=== PATIENT | female | born 1970 | race Caucasian/White ===

== ENCOUNTER 2016-07-12 04:14 | Emergency (ER) | payer OTHER ==
[~2016-07-12] VITALS: Ht 154.9 cm; Wt 100.0 kg
[~2016-07-12 04:14] MED LIST: ALBUAER19 INH; LISI2.5T5 PO; LORA-741 PO; MELO15TA3 PO; MOME200A INH; OXYM0.0592 NAE; PRLSR20 PO; TRAM-10 PO
[2016-07-12 04:20] VITALS: TEMP 37; Ht 154.9 cm; Wt 100.0 kg
[2016-07-12] MEDS ORDERED: MELO7.5T5 PO (04:32)
[2016-07-12] MEDS ORDERED: LSN5 PO (04:32)
[2016-07-12] MEDS ORDERED: VNTHFA/IN INH (04:32)
[2016-07-12] MEDS ORDERED: CLR10 PO (04:32)
[2016-07-12] MEDS ORDERED: ADVIN10/60 INH (04:32)
[2016-07-12] MEDS ORDERED: BUSP5TAB59 PO (04:32)
[2016-07-12 05:13] VITALS: O2SAT 98
[2016-07-12 05:16] LABS: BASO % 0.4 %; BASO ABS # 0.03 K/uL (0-0.2); COMPLETE YES; EOS % 0.6 %; HEMATOCRIT 43.1 % (37-47); IG% 0.3 %; MEAN CELL VOLUME 94.1 fL (80-100); MEAN CORPUSCULAR HEMOGLOBIN 31.2 pg (25-34); MEAN CORPUSCULAR HGB CONC 33.2 g/dl (32-36); MEAN PLATELET VOLUME 11.3 fL (7.4-10.4); MONO % 9.1 %; NEUT % 47.6 %; PLATELET COUNT 409 K/uL (130-400); RED BLOOD COUNT 4.58 M/uL (4.2-5.4); WHITE BLOOD COUNT 6.67 K/uL (4.8-10.8)
--- NOTE | 2016-07-12 05:24 | EMERGENCY ROOM VISIT NOTE ---
ED Visit Note First contact with patient: 04:29 I saw this patient in conjunction with Esequiel Montes De Oca PA-C. I agree with his decision-making interim plan.
[2016-07-12 05:55] LABS: BUN/CREATININE RATIO 7.7 (10-20); CALCIUM 8.9 mg/dl (8.5-10.1); CREATININE 0.84 mg/dl (0.60-1.20); POTASSIUM 4.4 mmol/L (3.5-5.1)
[2016-07-12 06:05] LABS: ALB/GLOB RATIO 1.1 (0.9-2); THYROID STIMULATING HORMONE 4.94 uIu/ml (0.300-4.500)
[2016-07-12 06:34] LABS: URINE APPEARANCE CLEAR (CLEAR); URINE BILIRUBIN NEG (NEG); URINE COLOR YELLOW; URINE NITRITE NEG (NEG); URINE PH 6.5 (4.5-7.5); URINE SPECIFIC GRAVITY 1.009 (1.000-1.030); UROBILINOGEN NEG (NEG); ZZUR CULT IF INDIC CLEAN CATCH NO
[2016-07-12 06:39] LABS: MANUAL MICROSCOPIC REQUIRED? NO; REVIEW REQ? NO
[2016-07-12 07:34] LABS: BENZODIAZEPINE, URINE NEG (NEG); COCAINE,URINE NEG (NEG); PHENCYCLIDINE, URINE NEG (NEG)
--- NOTE | 2016-07-12 07:39 | DIAGNOSTIC IMAGING REPORT ---
CT HEAD WITHOUT CONTRAST (CT) CLINICAL HISTORY: Headache. Acute change in mental status. COMPARISON STUDY: 10/05/2015 TECHNIQUE: Axial CT of the brain is performed from the vertex to the skull base. IV contrast was not administered for this examination. CT DOSE: 537.48 mGy.cm FINDINGS: No intra or extra-axial mass lesions are visualized. There is no CT evidence of acute cortical infarction. There is no evidence of midline shift. There is no acute hemorrhage. No calvarial fractures are visualized. There is no evidence of pathologic ventricular dilatation. There is no evidence of acute sinusitis IMPRESSION: No acute intracranial findings Electronically signed by: Donny Woodruff M.D. 07/12/2016 7:37 AM Dictated Date/Time: 07/12/2016 7:36 AM
[2016-07-12 07:55] VITALS: BP 128/89; PULSE 110; O2SAT 98
--- NOTE | 2016-07-13 03:16 | EMERGENCY ROOM VISIT NOTE ---
History First contact with patient: 04:29 Chief Complaint: NECK PAIN Stated Complaint: WEAKNESS/NECK PAIN History of Present Illness The patient is a 46 year old female who presents to the Emergency Room with complaints of vague left arm numbness that occurred for a 5-10 minute interval for resolving. Patient states that she was sleeping on her couch and awoke with her symptoms. She states that she had several alcoholic beverages tonight , and became worried about her symptoms. She did contact EMS and now presents for evaluation. The patient is also complaining of vague left anterior neck pain after a surgery that she had 2 weeks ago. The patient has not had fever or chills. She does not report chest pain, chest tightness, or shortness of breath. She is asymptomatic otherwise and rates her discomfort a 0/10. Review of Systems More than 10 systems were reviewed and otherwise negative with the exception of history of present illness. Past Medical/Surgical History History of asthma Family History No pertinent family history Social History Smoking Status: Former Smoker Drug Use: none Current/Historical Medications Scheduled Buspirone Hcl (Buspirone Hcl), 5 MG PO BID Fluticasone Prop/Salmeterol (Advair Diskus 100/50 60 Dose), 1 PUFF INH BID Lisinopril (Lisinopril), 5 MG PO DAILY Meloxicam (Mobic), 7.5 MG PO DAILY Mometasone Furoate-Formoterol (Dulera 200/5 Mcg), 2 PUFFS INH BID Omeprazole (Prilosec), 20 MG PO BID Scheduled PRN Albuterol Hfa (Ventolin Hfa), 2 PUFFS INH QID PRN for Wheezing Loratadine (Claritin), 10 MG PO DAILY PRN for ALLERGIC REACTION Oxymetazoline Hcl (Nasal [place]), 1 DOSE ARETHA DIRECTED PRN for DRYNESS Tramadol (Ultram), 50 MG PO Q6 PRN for Pain Allergies Coded Allergies: Povidone Iodine (Verified Allergy, Unknown, MADE HER SKIN RAW, 07/12/16) Physical Exam Vital Signs Date Time Temp Pulse Resp B/P Pulse Ox O2 Delivery O2 Flow Rate FiO2 07/12/16 07:55 110 16 128/89 98 07/12/16 07:20 100 16 80/68 98 Room Air 07/12/16 05:45 71 16 120/70 98 Room Air 07/12/16 05:13 98 Room Air 07/12/16 04:20 37.0 123 16 126/95 97 Room Air Pain Rating (0-10): 0 Physical Exam VITALS: Vitals are noted on the nurse's note and reviewed by myself. Vital signs stable. GENERAL: Well-developed, well-nourished, white female who appears obviously intoxicated. She is speaking in full sentences and cooperative. HEAD: Normocephalic atraumatic. EARS: External ear normal. External auditory canals clear, tympanic membranes pearly patterson without erythema or effusion bilaterally. EYES: Pupils equal round and reactive to light and accommodation. Conjunctivae without injection, sclerae without icterus. Extraocular movements intact. NOSE: Patent, turbinates without inflammation or discharge. MOUTH: Mucous membranes moist. Tonsils are not enlarged. Pharynx without erythema, blood, or exudate. Uvula midline. Airway patent. NECK: Supple without nuchal rigidity. No lymphadenopathy. No thyromegaly. Cervical spine is nontender. There is a well-appearing horizontal laceration to the left anterior neck that appears relatively recent. No pulsatile mass noted. No fluctuance or significant tenderness. HEART: Regular rate and rhythm without murmurs gallops or rubs. LUNGS: Clear to auscultation bilaterally without wheezes, rales or rhonchi. No retractions or accessory muscle use. MUSCULOSKELETAL: No muscle atrophy, erythema, or edema noted. Full range of motion without joint tenderness in all extremities. No tenderness to palpation. Normal gait. Strength 5/5 throughout. NEURO: Patient was alert and oriented to person place and time. CN II through XII grossly intact. Medical Decision & Procedures ER Provider Diagnostic Interpretation: CT HEAD WITHOUT CONTRAST (CT) CLINICAL HISTORY: Headache. Acute change in mental status. COMPARISON STUDY: 10/05/2015 TECHNIQUE: Axial CT of the brain is performed from the vertex to the skull base. IV contrast was not administered for this examination. CT DOSE: 537.48 mGy.cm FINDINGS: No intra or extra-axial mass lesions are visualized. There is no CT evidence of acute cortical infarction. There is no evidence of midline shift. There is no acute hemorrhage. No calvarial fractures are visualized. There is no evidence of pathologic ventricular dilatation. There is no evidence of acute sinusitis IMPRESSION: No acute intracranial findings Laboratory Results 07/12/16 05:00 Red Blood Count 4.58, Mean Corpuscular Volume 94.1, Mean Corpuscular Hemoglobin 31.2, Mean Corpuscular Hemoglobin Concent 33.2, Mean Platelet Volume 11.3, Neutrophils (%) (Auto) 47.6, Lymphocytes (%) (Auto) 42.0, Monocytes (%) (Auto) 9.1, Eosinophils (%) (Auto) 0.6, Basophils (%) (Auto) 0.4, Neutrophils # (Auto) 3.17, Lymphocytes # (Auto) 2.80, Monocytes # (Auto) 0.61, Eosinophils # (Auto) 0.04, Basophils # (Auto) 0.03 07/12/16 05:00 Test 07/12/16 05:00 07/12/16 05:05 07/12/16 05:12 07/12/16 05:15 White Blood Count 6.67 K/uL (4.8-10.8) Red Blood Count 4.58 M/uL (4.2-5.4) Hemoglobin 14.3 g/dL (12.0-16.0) Hematocrit 43.1 % (37-47) Mean Corpuscular Volume 94.1 fL (80-100) Mean Corpuscular Hemoglobin 31.2 pg (25-34) Mean Corpuscular Hemoglobin Concent 33.2 g/dl (32-36) Platelet Count 409 K/uL (130-400) Mean Platelet Volume 11.3 fL (7.4-10.4) Neutrophils (%) (Auto) 47.6 % Lymphocytes (%) (Auto) 42.0 % Monocytes (%) (Auto) 9.1 % Eosinophils (%) (Auto) 0.6 % Basophils (%) (Auto) 0.4 % Neutrophils # (Auto) 3.17 K/uL (1.4-6.5) Lymphocytes # (Auto) 2.80 K/uL (1.2-3.4) Monocytes # (Auto) 0.61 K/uL (0.11-0.59) Eosinophils # (Auto) 0.04 K/uL (0-0.5) Basophils # (Auto) 0.03 K/uL (0-0.2) RDW Standard Deviation 44.2 fL (36.4-46.3) RDW Coefficient of Variation 12.8 % (11.5-14.5) Immature Granulocyte % (Auto) 0.3 % Immature Granulocyte # (Auto) 0.02 K/uL (0.00-0.02) Anion Gap 12.0 mmol/L (3-11) Est Creatinine Clear Calc Drug Dose 92.6 ml/min Estimated GFR () 98.0 Estimated GFR (Non- 84.5 BUN/Creatinine Ratio 7.7 (10-20) Calcium Level 8.9 mg/dl (8.5-10.1) Total Bilirubin 0.1 mg/dl (0.2-1) Aspartate Amino Transf (AST/SGOT) 28 U/L (15-37) Alanine Aminotransferase (ALT/SGPT) 34 U/L (12-78) Alkaline Phosphatase 127 U/L (45-117) Total Protein 7.9 gm/dl (6.4-8.2) Albumin 4.1 gm/dl (3.4-5.0) Globulin 3.8 gm/dl (2.5-4.0) Albumin/Globulin Ratio 1.1 (0.9-2) Thyroid Stimulating Hormone (TSH) 4.940 uIu/ml (0.300-4.500) Urine Color YELLOW Urine Appearance CLEAR (CLEAR) Urine pH 6.5 (4.5-7.5) Urine Specific [place] 1.009 (1.000-1.030) Urine Protein NEG (NEG) Urine Glucose (UA) NEG (NEG) Urine Ketones NEG (NEG) Urine Occult Blood NEG (NEG) Urine Nitrite NEG (NEG) Urine Bilirubin NEG (NEG) Urine Urobilinogen NEG (NEG) Urine Leukocyte Esterase NEG (NEG) Urine Opiates Screen NEG (NEG) Urine Methadone, Qualitative NEG (NEG) Urine Barbiturates NEG (NEG) Urine Phencyclidine (PCP) Level NEG (NEG) Ur Amphetamine/Methamphetamine NEG (NEG) MDMA (Ecstasy) Screen NEG (NEG) Urine Benzodiazepines Screen NEG (NEG) Urine Cocaine Metabolite NEG (NEG) Urine Marijuana (THC) NEG (NEG) Bedside Troponin I 0.000 ng/ml (0-0.045) Ethyl Alcohol mg/dL 229.0 mg/dl (0-3) ED Course Physical exam and history were performed. Nursing notes and EMR were reviewed. Patient appears to have vague numbness and tingling in her left hand that lasted for a few minutes bringing her into the emergency department. The patient appears to stay clean toxic on examination. She does have a recent neck surgery, and although she states this was performed in [facility] , [facility] was not able to confirm any recent visit by the patient to their facility. The patient does not have strokelike symptoms and is with full sensation and range of motion of her extremities. IV access was established and labs were obtained. CT scan of the head was performed. The patient's blood work is as above and was reviewed. She does not have a significantly elevated white blood cell count, gross anemia, bandemia, or significant fluctuant imbalance. Her alcohol is over 220. Urine is without obvious signs of infection. Drug of abuse screen is negative. CT scan of the head does not show acute findings. On reevaluation the patient was found to be sleeping quite comfortably in her emergency department bed. She did have a male career placement specialist who arrives in the department, who does feel comfortable taking her home. The case was discussed with my attending physician, Dr. Lopes, who also independently evaluated the patient. Clinically I suspect the patient's symptoms are related to sleeping on her couch or possibly her alcohol intoxication. The patient needs to follow with her primary care physician for further care and management. The patient also needs to follow with her surgeon regarding her left anterior neck discomfort. She certainly does not have signs of aneurysm or dissection, and it seems that her discomfort is ongoing since the time of her procedure. The patient was pleased with this, and she sobered up, did not have any persisting complaints. She rated her discomfort a 0/10 at the time of her departure. The chart was completed utilizing [employer] Speech Voice Recognition Software. Grammatical errors, random word insertions, pronoun errors, and incomplete sentences are an occasional consequence of this system due to software limitations, ambient noise, and hardware issues. Any formal questions or concerns about the content, text, or information contained within the body of this dictation should be directly addressed to the provider for clarification. . Medical Decision Differential diagnosis: Etiologies such as alcohol intoxication, toxicologic, infection, hypoglycemia, electrolyte abnormalities, cardiac sources, intracerebral event, neurologic, as well as others were entertained. Impression Primary Impression: Numbness and tingling in left arm Additional Impression: Alcohol intoxication Departure Information Dispostion Home / Self-Care Condition GOOD Forms HOME CARE DOCUMENTATION FORM, IMPORTANT VISIT INFORMATION Patient Instructions My [facility] Additional Instructions You were seen and evaluated today on an emergency basis only. This is not a substitute for, or an effort to provide, complete comprehensive medical care. It is not possible to recognize and treat all injuries or illnesses in a single emergency department visit. For this reason it is recommended that you followup with your primary care physician and neurosurgeon next week for ongoing care and evaluation. Continue your medications as prescribed. Avoid alcohol as this can exacerbate your symptoms. You are welcome to return to the emergency department anytime with new, worsening, or concerning symptoms. Problem Qualifiers
== END 2016-07-12 07:55 | disposition home or self-care (01) ==
LOC: EDBD 04:14 → C.EDB 04:15
DX: R20.2 Paresthesia of skin (principal); F10.129 Alcohol abuse with intoxication, unspecified; Y90.7 Blood alcohol level of 200-239 mg/100 ml; J45.909 Unspecified asthma, uncomplicated; Z79.899 Other long term (current) drug therapy; Z87.891 Personal history of nicotine dependence; Z91.09 Other allergy status, other than to drugs and biological substances

== ENCOUNTER 2019-04-24 06:00 | Inpatient (IN) ==
--- NOTE | 2019-04-05 10:08 | PAT Medication Instructions ---
Medication Instructions Date of Service April 05, 2019 Home Medications albuterol sulfate 1 inh INHALATION QID PRN buspirone 10 mg PO BID cholecalciferol (vitamin D3) [Vitamin D3] 50 mcg PO QAM dicyclomine 10 mg PO BID PRN escitalopram oxalate [Lexapro] 10 mg PO QAM fluticasone propion-salmeterol [Advair Diskus] 1 puff INHALATION BID lisinopril 5 mg PO QAM meloxicam 7.5 mg PO QAM methocarbamol 500 mg PO 1200 methocarbamol 500 mg PO 1900 omeprazole 20 mg PO BID phentermine 15 mg PO QAM tramadol 50 mg PO Q4H PRN ASK your surgeon for instructions meloxicam DO NOT take the morning of surgery cholecalciferol (vitamin D3) [Vitamin D3] 50 mcg PO QAM dicyclomine 10 mg PO BID PRN lisinopril 5 mg PO QAM methocarbamol 500 mg PO 1200 Take morning of surgery With a small sip of water, OTHERWISE NOTHING TO EAT OR DRINK AFTER MIDNIGHT: albuterol sulfate 1 inh INHALATION QID PRN (use if needed; please bring with you to hospital day of surgery if possible) buspirone 10 mg PO BID escitalopram oxalate [Lexapro] 10 mg PO QAM fluticasone propion-salmeterol [Advair Diskus] 1 puff INHALATION BID omeprazole 20 mg PO BID tramadol 50 mg PO Q4H PRN (okay to take up to 4 hours prior to surgery if needed) Take evening before surgery albuterol sulfate 1 inh INHALATION QID PRN (if needed) buspirone 10 mg PO BID dicyclomine 10 mg PO BID PRN (if needed) fluticasone propion-salmeterol [Advair Diskus] 1 puff INHALATION BID methocarbamol 500 mg PO 1900 omeprazole 20 mg PO BID tramadol 50 mg PO Q4H PRN (if needed) Other Notes STOP taking 5 days before surgery phentermine 15 mg PO QAM If you have any questions please call us at [phone] or [phone] or [phone] or [phone]
--- NOTE | 2019-04-06 12:29 | Anesthesiology Consultation ---
Date of Service April 06, 2019 Assessment & Plan (1) Encounter for pre-operative examination: Chart Review Chart Review: Acceptable Risk for Surgery and Patient seen in Pre Admission Testing History Surgery Operation Date: 04/24/19 07:45 Proposed Procedures p L5-S2 Decompression and Fusion, Spinal Cord Monitoring - Hayes Shea DO Height/Weight Height: 5 ft 1 in Weight: 109.4 kg Allergies Allergy/AdvReac Type Severity Reaction Status Date / Time adhesive tape Allergy Severe Rash Verified 03/27/19 15:14 povidone-iodine Allergy Severe Betadine Verified 03/27/19 15:14 --> MADE HER SKIN RAW Medications Home Medications Medication Instructions Recorded Confirmed Last Taken albuterol sulfate 1 inh INHALATION QID PRN 03/27/19 03/27/19 Unknown buspirone 10 mg PO BID 03/27/19 03/27/19 Unknown cholecalciferol (vitamin D3) 50 mcg PO QAM 03/27/19 03/27/19 Unknown [Vitamin D3] dicyclomine 10 mg PO BID PRN 03/27/19 03/27/19 Unknown escitalopram oxalate [Lexapro] 10 mg PO QAM 03/27/19 03/27/19 Unknown fluticasone propion-salmeterol 1 puff INHALATION BID 03/27/19 03/27/19 Unknown [Advair Diskus] lisinopril 5 mg PO QAM 03/27/19 03/27/19 Unknown meloxicam 7.5 mg PO QAM 03/27/19 03/27/19 Unknown methocarbamol 500 mg PO 1200 03/27/19 03/27/19 Unknown methocarbamol 500 mg PO 1900 03/27/19 03/27/19 Unknown omeprazole 20 mg PO BID 03/27/19 03/27/19 Unknown phentermine 15 mg PO QAM 03/27/19 03/27/19 Unknown tramadol 50 mg PO Q4H PRN 03/27/19 03/27/19 Unknown Past Medical History Medical History Anemia history- no current issues Anxiety Asthma stable- rare albuterol use Cancer cervical cancer - s/p hysterectomy- no chemo or XRT Chronic back pain Chronic obstructive pulmonary disease Stable- rare albuterol use. Mild RAY - no acute issues Degenerative disc disease Depression GERD (gastroesophageal reflux disease) Controlled and stable Hx of branchial cleft cyst left -- removed ~2015 [facility] Hypertension Osteoarthritis Post traumatic stress disorder Exercise / Class Metabolic Activity III < 4 Walking/Shop/Light housework (mild SOB with one set of stairs- no chest pain ) Past Family History Family History Grandfather FHx: throat cancer smoker FHx: brain cancer Other No family history of adverse response to anesthesia Past Surgical History Surgical History History of bilateral tubal ligation History of cardiac cath ~2012 at [facility]. No CAD per pt- no stents needed History of cholecystectomy History of conization of cervix History of dilatation and curettage Hx of neck surgery left branchial cleft cyst (~2015 [facility]) with repair of left artery S/P arthroscopy of shoulder left x2, Left shoulder resurfacin05/03/13: Grade view 1, MAC#3, ETT 7.5 + PNB at [facility] S/P epidural steroid injection S/P vaginal hysterectomy with anterior/posterior repair Past Anesthesia History No Hx of Anesthesia Complications and No Family Hx of Anesthesia Complications History of PONV No Hx of PONV and No Hx of Motion Sickness Social History Smoking Status: Former smoker tobacco type: cigarettes Smoking cigarettes per day: 1ppd x 35 years Do You Dip or Chew Tobacco: No Smoking End Date: 2013 Hx Alcohol Use: No Hx Substance Use: No substance use type: does not use Review of Systems Reflux- well controlled. +Snoring- no apnea. Patient denies chest pain, shortness of breath at rest, cough, wheezing, palpitations. No hx of seizures, stroke, [place], apnea. No hx of blood clots or blood transfusions No recent steroid use Physical Exam Vital Signs VITALS BP 110/80 P 92 TEMP 98.0 SP02 95% RESP 18 Constitutional no acute distress ENMT Mouth: no TMJ clicking Thyromental Distance: > or= 3.5 Finger Breadths (4) Mallampati Class: III Partial dentures - upper and lower (no frontal teeth missing) Neck neck extension not limited Respiratory normal respiratory effort and + respiratory distress Auscultation: lungs clear to auscultation bilaterally and + diminished lung sounds (throughout ); no wheezes Cardiovascular Rate/Rhythm: regular rate and regular rhythm Vessels: no carotid bruit Musculoskeletal Spine: normal cervical ROM and no pain with cervical ROM Psychiatric Orientation: alert Testing Laboratory Results APTT 29.1 Seconds (21.0-31.0) 04/06/19 12:44 Urine Color Yellow 04/06/19 12:44 Urine Appearance Clear (Clear) 04/06/19 12:44 Urine pH 7.0 (4.5-7.5) 04/06/19 12:44 Ur Specific [place] 1.013 (1.000-1.030) 04/06/19 12:44 Urine Protein Negative (Negative) 04/06/19 12:44 Urine Glucose (UA) Negative (Negative) 04/06/19 12:44 Urine Ketones Negative (Negative) 04/06/19 12:44 Urine Nitrite Negative (Negative) 04/06/19 12:44 Ur Leukocyte Esterase Negative (Negative) 04/06/19 12:44 Blood Type O Negative 04/06/19 12:44 Antibody Screen NEGATIVE 04/06/19 12:44 04/05/19= WBC: 7.09 H/H: 14.0/44.8 PLATELETS: 338 SODIUM: 139 POTASSIUM: 4.0 CHLORIDE: 104 CO2: 27.0 BUN: 11.0 CREATININE: 0.92 GLUCOSE: 88 PT: 12.2 INR: 1.06 Electrocardiogram Date: 04/05/19 Findings: + NSR @ (80) Chest X-Ray Date: 04/05/19 Findings: + NAD Mildly to moderately underinflated and essentially clear lungs with the anterior right side of the diaphragm chronically higher than the left. Left shoulder prosthesis with a metallic humeral component. Scoliosis.
[2019-04-06 14:01] LABS: Appearance Urine Clear (Clear); Bilirubin Urine Negative (Negative); Blood Urine Negative (Negative); Color Urine Yellow; Glucose Urine UA Negative (Negative); Ketones Urine Negative (Negative); Leukocyte Esterase Urine Negative (Negative); Nitrite Urine Negative (Negative); Protein Urine Negative (Negative); Specific Gravity Urine 1.013 (1.000-1.030); Urobilinogen Urine Negative (Negative)
[2019-04-06 14:10] LABS: Partial Thromboplastin Ratio 1.1; Partial Thromboplastin Time 29.1 Seconds (21.0-31.0)
[~2019-04-24 06:00] MED LIST changes: +ACETAMINOPHEN 500 MG TAB PO SCH; -ALBUAER19 INH; +CEFAZOLIN 2000MG 2,000 MG/15 ML SYR IV SCH; +CeleBREX 200 MG CAP PO SCH; +GABAPENTIN 900 MG DOSE PO SCH; -LISI2.5T5 PO; -LORA-741 PO; +LR 15ML/HR IV SCH; -MELO15TA3 PO; -MOME200A INH; -OXYM0.0592 NAE; -PRLSR20 PO; -TRAM-10 PO
[2019-04-24] MEDS ORDERED: ONDANSETRON INJ 2 MG/ML 2 ML VIAL ONE (06:54)
[2019-04-24] MEDS ORDERED: MIDAZOLAM HCL 1 MG/ML 2ML VIAL ONE (06:54)
[2019-04-24] MEDS ORDERED: PROPOFOL IV EMULSION 10 MG/ML 20 ML VIAL IV ONE (06:54)
[2019-04-24] MEDS ORDERED: LIDOCAINE HCL 2% 2 ML VIAL/AMP(20MG/ML) INFIL ONE (06:54)
[2019-04-24] MEDS ORDERED: ROCURONIUM BROMIDE 10 MG/ML 5 ML VIAL ONE (06:54)
[2019-04-24] MEDS ORDERED: fentaNYL citrate 100 MCG/2 ML VIAL ONE ×2 (06:54→08:11)
[2019-04-24] MEDS ORDERED: BACITRACIN INJ 50,000 UNIT VIAL ONE (07:08)
[2019-04-24] MEDS ORDERED: BUPIVACAINE/EPINEPHRINE 0.5% MPF 1:200,000 10 ML VIAL ONE (07:08)
--- NOTE | 2019-04-24 07:30 | History & Physical Bridge Note ---
Date of Service April 24, 2019 History & Physical Bridge Note I have examined the patient, reviewed the History & Physical and in the interval since the performance of the History & Physical I have noted the following changes of clinical significance: no changes noted
--- NOTE | 2019-04-24 07:32 | History & Physical Report ---
Date of Service April 24, 2019 Assessment & Plan (1) Neurogenic claudication due to lumbar spinal stenosis: Lumbar decompression fusion L5-S1 Present on Admission?: Yes History of Present Illness Chief Complaint: Back and leg pain Primary Care Provider: Kelechi Brandt This is a 49-year-old female presents with chronic persistent back and leg pain. Failed extensive course of nonoperative care is here for surgical intervention. Allergies Allergy/AdvReac Type Severity Reaction Status Date / Time adhesive tape Allergy Severe Rash Verified 04/24/19 06:20 povidone-iodine Allergy Severe Betadine Verified 04/24/19 06:20 --> MADE HER SKIN RAW Home Medications Home Medications Medication Instructions Recorded Confirmed Type albuterol sulfate 1 inh INHALATION QID PRN 03/27/19 04/24/19 History buspirone 10 mg PO BID 03/27/19 04/24/19 History cholecalciferol (vitamin D3) 50 mcg PO QAM 03/27/19 04/24/19 History [Vitamin D3] dicyclomine 10 mg PO BID PRN 03/27/19 04/24/19 History escitalopram oxalate [Lexapro] 10 mg PO QAM 03/27/19 04/24/19 History fluticasone propion-salmeterol 1 puff INHALATION BID 03/27/19 04/24/19 History [Advair Diskus] lisinopril 5 mg PO QAM 03/27/19 04/24/19 History meloxicam 7.5 mg PO QAM 03/27/19 04/24/19 History methocarbamol 1,000 mg PO 1200 03/27/19 04/24/19 History methocarbamol 500 mg PO 1900 03/27/19 04/24/19 History omeprazole 20 mg PO BID 03/27/19 04/24/19 History phentermine 15 mg PO QAM 03/27/19 04/24/19 History tramadol 50 mg PO Q4H PRN 03/27/19 04/24/19 History Past Med/Surg History Medical History Anemia history- no current issues Anxiety Asthma stable- rare albuterol use Cancer cervical cancer - s/p hysterectomy- no chemo or XRT Chronic back pain Chronic obstructive pulmonary disease Stable- rare albuterol use. Mild RAY - no acute issues Degenerative disc disease Depression GERD (gastroesophageal reflux disease) Controlled and stable Hx of branchial cleft cyst left -- removed ~2015 [facility] Hypertension Osteoarthritis Post traumatic stress disorder Surgical History History of bilateral tubal ligation History of cardiac cath ~2012 at [facility]. No CAD per pt- no stents needed History of cholecystectomy History of conization of cervix History of dilatation and curettage Hx of neck surgery left branchial cleft cyst (~2015 [facility]) with repair of left artery S/P arthroscopy of shoulder left x2, Left shoulder resurfacin05/03/13: Grade view 1, MAC#3, ETT 7.5 + PNB at [facility] S/P epidural steroid injection S/P vaginal hysterectomy with anterior/posterior repair Family History Grandfather FHx: throat cancer smoker FHx: brain cancer Other No family history of adverse response to anesthesia Social History Preferred Language: Kinyarwanda Communication Ability: Effective Can Dragger Required: No Beliefs That Will Affect Care: None Current Living Situation: Significant Other Other Information That Helps Us Care for You: No Feels Safe at Home: Yes Safety Concerns: Feels Safe At This Time Smoking Status: Former smoker Tobacco Type: cigarettes ; Cigarettes Per Day: 1ppd x 35 years ; Do You Dip or Chew Tobacco: No ; Smoking End Date: 2013 ; Second Hand Exposure: Yes ; Tobacco Cessation Education Requested by Patient: No Hx Alcohol Use: No Hx Substance Use: No Physical Exam Physical Exam: Patient is alert and oriented neurologically intact. Results & Data Vital Signs (Past 12 Hours) Vital Signs Temp Pulse Resp BP Pulse Ox 04/24/19 06:29 36.7 C 78 20 115/77 96
[2019-04-24] MEDS ORDERED: ATROPINE SULFATE 0.1 MG/ML 10ML SYR IV PRN (07:33)
[2019-04-24] MEDS ORDERED: METOCLOPRAMIDE HCL INJ 5 MG/ML 2 ML VIAL IV PRN ×2 (07:33→11:31)
[2019-04-24] MEDS ORDERED: ONDANSETRON INJ 2 MG/ML 2 ML VIAL IV PRN ×2 (07:33→11:31)
[2019-04-24] MEDS ORDERED: ePHEDrine sulfate 50 MG/ML AMP IV PRN (07:33)
[2019-04-24] MEDS ORDERED: PROMETHAZINE HCL 12.5 MG in SODIUM CHLORIDE 0.9% 50 ML IV PRN ×2 (07:33→11:31)
[2019-04-24] MEDS ORDERED: DEXAMETHASONE SOD INJ 4 MG/ML VIAL ONE (08:06)
[2019-04-24] MEDS ORDERED: NEOSTIGMINE METHYLSULFATE 1 MG/ML 10ML VIAL ONE (09:24)
[2019-04-24] MEDS ORDERED: GLYCOPYRROLATE 0.2 MG/ML VIAL ONE (09:24)
[2019-04-24] MEDS ORDERED: FLOSEAL HEMOSTATIC MATRIX 5ML TOP ONE (09:34)
--- NOTE | 2019-04-24 09:34 | Operative Report ---
Post Operative Report Pre & Post Diagnosis Operation Date: 04/24/19 07:45 Pre-Op Diagnosis: Spondylolisthesis, Lumbar Region Post-Op Diagnosis: Spondylolisthesis, Lumbar Region I identified the patient and participated in the time-out.: Yes Procedure Operation Date: 04/24/19 07:45 Actual Procedures #1 lumbar decompression with bilateral medial facetectomies and foraminotomies L5-S1. #2 posterior spinal fusion L5-S1. #3 placement posterior instrumentation L5-S1. #4 interbody fusion L5-S1. #5 placement peek cage 11 x 22 mm at L5-S1. #6 placement of locally harvested morselized autograft in the posterior lateral gutters. #7 placement infuse collagen sponge combined master graft in the posterior lateral gutters and ostial amp and interbody space. Surgeon Hayes Shea, DO Student Life Coordinator Karlene Haskins Estimated Blood Loss 150 Findings See Below The patient is 5 foot 1 inches tall weighing over 107 kg with a BMI in excess of 44. The patient's body habitus did add considerable technical difficulty throughout the procedure requiring her deepest retractors and longus instruments in order to perform her surgery. This added at least 50% increase in operative time and will increase difficulties with her postoperative management. Specimens None Indications This is a 49-year-old female who presents above-mentioned diagnosis after failing extensive course of nonoperative care is here for surgical invention. Description of Procedure Patient was met with identified informed consent obtained. Patient was then taken to the operative suite underwent intubation placed in a prone position the Rickey table on top of the Isauro frame. All bony prominences well-padded eyes inspected to ensure no external pressure placed upon. This point the lumbar spine was prepped and draped in normal sterile fashion. Sharp dissection with the assistance pericardial performed down to and exposing the lamina and transverse processes of L5 and the sacral ala. Obvious bilateral pars defect noted. A complete laminectomy was then performed including bilateral medial facetectomies and foraminotomies addressing severe spinal stenosis. Pedicle screws were then placed in L5 and S1 levels bilaterally with assistance of fluoroscopy and appropriate size carla placed. By way of a trans-foraminal approach on the right a complete discectomy was performed endplates curetted to subcortical bleeding bone and a 11 x 22 mm peek cage filled with osteo-bone graft tapped in position. The rods were then locked into final position bilaterally. The transverse processes of L5 and the sacral ala burred to subcortical bleeding bone. Infuse collagen sponge master graft local autograft placed in the posterior lateral gutters. 15 round VLAD drain inserted. The incision was then closed with 1 Vicryl fascia 2-0 Vicryl subcutaneously and 4 Monocryl for final skin closure. Steri-Strip sterile dressings placed. Patient will continue PACU stable addition. Please note Karlene Haskins present at the entire procedure involved the patient positioning complex portions of the surgery and final skin closure. Lastly spinal cord monitoring was utilized that the procedure no changes noted. I attest to the content of the Intraoperative Record and any orders documented therein. Any exceptions are noted below.
--- NOTE | 2019-04-24 09:41 | Fluoroscopy Report ---
LUMBAR SPINE, INTRAOPERATIVE FLUOROSCOPY HISTORY: L5-S1 decompression and fusion. FLUOROSCOPY TIME: 22 seconds. FINDINGS: Intraoperative fluoroscopy was provided for the lumbar spine. 2 fluoroscopic spot images we re obtained. Posterior decompression fusion at L5-S1 with pedicle screws and rods. The hardware appea rs intact. IMPRESSION: Fluoroscopy provided for a L5-S1 posterior decompression and fusion. ACT 112: Negative or not required by law. Electronically signed by: Igor Mccurdy M.D. 04/24/2019 9:40 AM
[2019-04-24] MEDS: fentaNYL citrate 100 MCG/2 ML VIAL IV PRN ×4 (10:01→10:46)
[2019-04-24] MEDS: HYDROmorphone INJ 2 MG/ML SYR/VIAL IV PRN ×4 (10:12→10:28)
[2019-04-24] MEDS ORDERED: LORazepam 0.5 MG/1 ML VIAL IV PRN (11:31)
[2019-04-24] MEDS ORDERED: NALOXONE HCL 0.4 MG/1 ML VIAL/CARP IV PRN (11:31)
[2019-04-24] MEDS ORDERED: LORazepam 0.5 MG TAB PO PRN (11:31)
[2019-04-24] MEDS ORDERED: ACETAMINOPHEN 500 MG TAB PO PRN (11:31)
[2019-04-24] MEDS ORDERED: HYDROmorphone INJ 1 MG/ML SYRINGE IV PRN (11:31)
[2019-04-24] MEDS ORDERED: DO NOT ADMINISTER FLU VACCINE PRN (11:31)
[2019-04-24] MEDS ORDERED: bisacodyL 10 MG SUPP PR PRN (11:31)
[2019-04-24] MEDS ORDERED: SOD PHOSPHATE/SOD BIPHOSPHATE ENEMA 132 ML BTL PR PRN (11:31)
[2019-04-24] MEDS ORDERED: HYDROmorphone INJ 0.5 MG/0.5 ML SYR IV PRN (11:31)
[2019-04-24] MEDS ORDERED: DO NOT ADMINISTER PNEUMOCOCCAL VACCINE PRN (11:31)
[2019-04-24] MEDS ORDERED: ONDANSETRON 4 MG OD TAB PO PRN (11:31)
[2019-04-24] MEDS ORDERED: DICYCLOMINE HCL 10 MG CAP PO PRN (11:31)
[2019-04-24] MEDS ORDERED: MAGNESIUM HYDROXIDE SUSP 30 ML UDC PO PRN (11:31)
[2019-04-24] MEDS ORDERED: ALUMINUM/MAGNESIUM SUSP 30 ML UDC PO PRN (11:31)
[2019-04-24] MEDS ORDERED: FAMOTIDINE 20 MG TAB PO PRN (11:31)
[2019-04-24] MEDS ORDERED: ACETAMINOPHEN 1,000 MG/100 ML VIAL IV PRN (11:31)
[2019-04-24] MEDS ORDERED: ALBUTEROL HFA 8 GM INHALER INH PRN (11:56)
[2019-04-24] MEDS: LACTATED RINGER'S 1,000 ML IV SCH (12:52)
[2019-04-24] MEDS: FLUTICASONE/VILANTEROL 100/25MCG 14 PUFFS/INHALER INH SCH (12:53)
[2019-04-24] MEDS: CEFAZOLIN 2000MG 2,000 MG/15 ML SYR IV SCH ×2 (12:54→21:37)
[2019-04-24] MEDS: KETOROLAC TROMETHAMINE 15 MG/ML VIAL IV SCH ×3 (12:54→23:48)
[2019-04-24] MEDS: OXYCODONE HCL IR 5 MG TAB (IMMEDIATE RELEASE) PO PRN ×3 (13:06→21:37)
--- NOTE | 2019-04-24 13:36 | Anesthesiology Progress Note ---
Date of Service April 24, 2019 Anesthesia Post Procedure Vital Signs Vital Signs: Temp Pulse Pulse Pulse Resp BP Pulse Ox 04/24/19 13:14 88 16 118/82 96 04/24/19 12:14 36.9 C 85 16 121/84 97 04/24/19 11:44 36.5 C 97 H 16 110/78 97 04/24/19 11:15 36.7 C 102 H 20 112/80 96 04/24/19 11:05 37.0 C 88 12 115/76 96 04/24/19 10:50 91 H 16 95/70 L 97 04/24/19 10:40 81 13 107/79 93 04/24/19 10:30 102 H 12 116/78 97 04/24/19 10:20 93 H 18 103/80 94 04/24/19 10:10 89 17 122/80 97 04/24/19 10:00 100 H 15 125/78 99 04/24/19 09:54 36.6 C 95 H 23 138/89 100 04/24/19 06:29 36.7 C 78 20 115/77 96 Pain Intensity Lower Back: Pain Intensity: 5 Transfer of Care Handoff Completed per policy Notes Mental Status: alert / awake / arousable and participated in evaluation Patient Amnestic to Procedure: Yes Nausea / Vomiting: adequately controlled Pain: adequately controlled Airway Patency, RR, SpO2: stable & adequate BP & HR: stable & adequate Hydration State: stable & adequate Anesthetic Complications: no major complications apparent
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
[2019-04-24] MEDS: TRAMADOL HCL 50 MG TABLET PO PRN ×2 (16:30→23:46)
[2019-04-24] MEDS: METHOCARBAMOL 500 MG TABLET PO SCH (20:39)
[2019-04-24] MEDS: PANTOprazole 40 MG TAB PO SCH (20:39)
[2019-04-24] MEDS: DOCUSATE SODIUM/SENNA 50/8.6MG TAB PO SCH (20:39)
[2019-04-25] MEDS: LACTATED RINGER'S 1,000 ML IV SCH (01:24)
[2019-04-25] MEDS: OXYCODONE HCL IR 5 MG TAB (IMMEDIATE RELEASE) PO PRN ×5 (01:45→22:19)
[2019-04-25] MEDS: TRAMADOL HCL 50 MG TABLET PO PRN ×3 (04:34→16:21)
[2019-04-25 05:08] LABS: Basophils # (auto) 0.02 K/uL (0-0.2); Basophils % (auto) 0.2 %; Eosinophils # (auto) 0.02 K/uL (0-0.5); Eosinophils % (auto) 0.2 %; Hematocrit (blood only) 36.2 % (37-47); Hemoglobin 11.7 g/dL (12.0-16.0); Immature Granulocytes # (auto) 0.02 K/uL (0.00-0.02); Immature Granulocytes % (auto) 0.2 %; Lymphocytes # (auto) 1.83 K/uL (1.2-3.4); Lymphocytes % (auto) 14.5 %; Mean Corpuscular Hemoglobin 30.5 pg (25-34); Mean Corpuscular Hgb Conc 32.3 g/dL (32-36); Mean Corpuscular Volume 94.3 fL (80-100); Mean Platelet Volume 11.7 fL (7.4-10.4); Monocytes # (auto) 0.86 K/uL (0.11-0.59); Monocytes % (auto) 6.8 %; Neutrophils # (auto) 9.87 K/uL (1.4-6.5); Neutrophils % (auto) 78.1 %; Platelet Count 313 K/uL (130-400); RDW Coefficient of Variation 13.4 % (11.5-14.5); RDW Standard Deviation 46.2 fL (36.4-46.3); Red Blood Count 3.84 M/uL (4.2-5.4); White Blood Count 12.62 K/uL (4.8-10.8)
[2019-04-25] MEDS: POLYETHYLENE (MIRALAX) 17 GM PACK PO SCH ×3 (05:28→17:31)
[2019-04-25] MEDS: KETOROLAC TROMETHAMINE 15 MG/ML VIAL IV SCH (05:28)
[2019-04-25 05:35] LABS: BUN Creatinine Ratio 12.2 (10-20); Calcium 8.1 mg/dl (8.5-10.1); Creatinine Clr Calc Pharmacy 85.7 ml/min; Est GFR (African American) 85.9; Est GFR (Non-African American) 74.2; Potassium 3.7 mmol/L (3.5-5.1)
--- NOTE | 2019-04-25 08:14 | Anesthesiology Progress Note ---
Date of Service April 25, 2019 Anesthesia Post Procedure Vital Signs Vital Signs: Temp Pulse Pulse Pulse Resp BP Pulse Ox 04/25/19 07:14 36.7 C 77 16 124/88 96 04/25/19 03:02 36.5 C 78 15 135/89 99 04/24/19 22:51 36.9 C 83 16 123/82 96 04/24/19 19:16 36.8 C 74 18 123/80 96 04/24/19 15:17 36.4 C L 83 17 119/83 95 04/24/19 14:11 36.5 C 81 16 119/80 99 04/24/19 13:14 88 16 118/82 96 04/24/19 12:14 36.9 C 85 16 121/84 97 04/24/19 11:44 36.5 C 97 H 16 110/78 97 04/24/19 11:15 36.7 C 102 H 20 112/80 96 04/24/19 11:05 37.0 C 88 12 115/76 96 04/24/19 10:50 91 H 16 95/70 L 97 04/24/19 10:40 81 13 107/79 93 04/24/19 10:30 102 H 12 116/78 97 04/24/19 10:20 93 H 18 103/80 94 04/24/19 10:10 89 17 122/80 97 04/24/19 10:00 100 H 15 125/78 99 04/24/19 09:54 36.6 C 95 H 23 138/89 100 Pain Intensity Lower Back: Pain Intensity: 4 Notes Mental Status: alert / awake / arousable and participated in evaluation Nausea / Vomiting: adequately controlled Pain: adequately controlled Airway Patency, RR, SpO2: stable & adequate BP & HR: stable & adequate Hydration State: stable & adequate
[2019-04-25] MEDS: FLUTICASONE/VILANTEROL 100/25MCG 14 PUFFS/INHALER INH SCH (08:29)
[2019-04-25] MEDS: ESCITALOPRAM OXALATE 10 MG TAB PO SCH (08:30)
[2019-04-25] MEDS: lisinopriL 5 MG TAB PO SCH (08:30)
[2019-04-25] MEDS: PANTOprazole 40 MG TAB PO SCH ×2 (08:30→20:13)
--- NOTE | 2019-04-25 10:44 | Orthopedic Progress Note ---
Date of Service April 25, 2019 Assessment & Plan (1) Neurogenic claudication due to lumbar spinal stenosis: At this time patient will initiate physical therapy advance her bowel regiment hopefully discharge home in the next few days. Present on Admission?: Yes Admission and Anticipated Discharge Date Admission Date: April 24, 2019 Subjective Back pain controlled leg symptoms markedly improved. Physical Exam Physical Exam: Patient is in the chair at the bedside has good strength testing. Appears comfortable. Results & Data ([facility]) Vital Signs (Past 12 Hours) Vital Signs Temp Pulse Resp BP Pulse Ox 04/25/19 07:14 36.7 C 77 16 124/88 96 04/25/19 03:02 36.5 C 78 15 135/89 99 04/24/19 22:51 36.9 C 83 16 123/82 96
--- NOTE | 2019-04-25 12:23 | Hospitalist Progress Note ---
Date of Service April 25, 2019 Assessment & Plan (1) Neurogenic claudication due to lumbar spinal stenosis: - S/P Decompression/Fusion - Pain currently well controlled; Bowel regimen; Surgical management per primary team - PT/OT (2) Anemia: - Hgb 11.7 - no need for transfusion at this time - H/O anemia - no labs for comparison - probably some losses from surgery - Can routinely monitor (3) Asthma: - STABLE; No acute exacerbation - Has required increased inhaler use with cold weather when outside but hasn't required additional treatment/steroids/antibiotics - Continue Albuterol PRN; Breo Ellipta as interchange (4) Hypertension: - STABLE - Continue Lisinopril 5 mg daily (5) Depression: - Depression/Anxiety - Buspirone 10 mg BID; Lexapro 10 mg daily (6) GERD (gastroesophageal reflux disease): - Continue PPI Disposition: Patient is stable in regards to her chronic conditions. Recommend to continue home medications as prescribed on D/C. Hospitalist service will sign off however do not hesitate to contact us with questions or any change in medical condition. Admission and Anticipated Discharge Date Admission Date: April 24, 2019 Anticipated date of discharge: 04/26/19 Subjective She looks fantastic post-operatively. She is ambulating in the room independently on my visit. She reports pain is controlled. Tolerating diet without issue. Breathing is stable. She is working with therapy. No other complaints at this time Review of Systems Respiratory: no cough and no dyspnea Cardiovascular: no chest pain Gastrointestinal: no abdominal pain, no nausea, no vomiting, no constipation and no diarrhea/loose stools Genitourinary: no dysuria Musculoskeletal: no back pain Integumentary: no rash Neurologic: no gait abnormality, no tingling and no numbness Physical Exam Constitutional: WD/WN, vitals as above Eyes: + anicteric sclerae ENMT: Ears: no hearing impairment Nose: nasal mucous membranes not dry Neck: trachea midline Respiratory: normal respiratory effort, lungs clear to auscultation Cardiovascular: RRR, no murmur, no edema Gastrointestinal (Abdomen): Inspection/Auscultation: normal bowel sounds Percussion/Palpation: abdomen soft; abdomen nontender Musculoskeletal: no cyanosis or clubbing, extremities motor strength 5/5 Head/Neck/Chest: normocephalic and head atraumatic + VLAD drain present Skin: no rashes, warm and dry Neurologic: moves all extremities Psychiatric: A+Ox3, euthymic affect Results & Data ([place]) Vital Signs (Past 12 Hours) Vital Signs Temp Pulse Resp BP Pulse Ox 04/25/19 07:14 36.7 C 77 16 124/88 96 04/25/19 03:02 36.5 C 78 15 135/89 99 PG Care Time/CCT Total # of Minutes Spent Total Time Spent with Patient: Total time spent is greater than 50% in coordination of care (as documented) at patient's floor/unit and/or counseling patient: Coding Level of Care Code 71692 Inpt Consult Level 2 Diagnoses Neurogenic claudication due to lumbar spinal stenosis M48.062 Anemia D64.9 Asthma J45.909 Hypertension I10 Depression F32.9 GERD (gastroesophageal reflux disease) K21.9
[2019-04-25] MEDS: DOCUSATE SODIUM/SENNA 50/8.6MG TAB PO SCH (20:13)
[2019-04-25] MEDS: METHOCARBAMOL 500 MG TABLET PO SCH (20:13)
[2019-04-26] MEDS: POLYETHYLENE (MIRALAX) 17 GM PACK PO SCH ×3 (00:13→11:40)
[2019-04-26] MEDS: TRAMADOL HCL 50 MG TABLET PO PRN ×4 (00:18→13:31)
[2019-04-26] MEDS: OXYCODONE HCL IR 5 MG TAB (IMMEDIATE RELEASE) PO PRN ×3 (02:47→11:39)
[2019-04-26] MEDS: FLUTICASONE/VILANTEROL 100/25MCG 14 PUFFS/INHALER INH SCH (07:45)
[2019-04-26] MEDS: lisinopriL 5 MG TAB PO SCH (07:45)
[2019-04-26] MEDS: PANTOprazole 40 MG TAB PO SCH (07:45)
[2019-04-26] MEDS: ESCITALOPRAM OXALATE 10 MG TAB PO SCH (07:46)
--- NOTE | 2019-04-26 11:13 | Discharge Summary ---
Date of Service April 26, 2019 Admission HPI Per Admitting Provider This is a 49-year-old female presents with chronic persistent back and leg pain. Failed extensive course of nonoperative care is here for surgical intervention. Principal Diagnosis Lumbar spinal stenosis with neurogenic claudication Discharge Data Allergies Allergy/AdvReac Type Severity Reaction Status Date / Time adhesive tape Allergy Severe Rash Verified 04/24/19 06:20 povidone-iodine Allergy Severe Betadine Verified 04/24/19 06:20 --> MADE HER SKIN RAW Consultations 04/24/19 11:31 Consult Case Management - Discharge Planning Routine Consult Hospitalist Routine Procedures Performed Operation Date: 04/24/19 07:45 Actual Procedures p L5-S1 Decompression and Fusion, Spinal Cord Monitoring(Not Applicable) - Hayes Shea DO Ordered Studies 04/24/19 07:00 FL fluoroscopy <1hr Routine FL lumbar spine 2-3V Routine Hospital Course (1) Neurogenic claudication due to lumbar spinal stenosis: Patient with lumbar decompression fusion tolerated well second orthopedic for postoperative postop day 1 she was up and ambulating progressed to postop day #2 VLAD drain decreased appropriately. Excellent strength testing. Subsequently discharged home. Discharge orders instructions from the chart for further review. Total Time Total Time Spent Total Time Spent (In Minutes): 20 minutes Discharge Plan Discharge Items Patient Disposition: Home - Self-Care Reason For Visit: Spondylolisthesis, Lumbar Region Discharge Diagnosis: Lumbar spinal stenosis with spondylolisthesis Activity: As commented below Non-emergency contact: Primary Care Provider Call non-emergency contact if: you have any medication questions Follow-up/Referrals: Kelechi Brandt [Primary Care Provider] - Diet: Regular Addtl Attending Provider Instructions: ACTIVITY RECOMMENDATIONS: SELF CARE INSTRUCTIONS AFTER THORACIC/LUMBAR FUSIONS 1. You may walk to your tolerance. It is good exercise for your legs and back. Expect some back and intermittent leg aches and pains. 2. You may perform "counter-top" level activities (make a sandwich, ajimee with a project, etc.). 3. No bending or lifting of more than 10 pounds or back twisting of any nature (roll like a log when turning in bed). 4. You may ride in a car for 20-30 minutes at a time. No driving until after your first visit with your doctor. 5. Frequent changes of position and restricting sitting to 30 minutes at a time will help limit the amount of back spasms and stiffness you may experience. 6. You may discontinue the use of ambulatory aids (cane, crutches, etc.) once your strength and confidence allow. 7. You may guest relations coordinator the shower and let water strike your incision when you arrive home at least once daily. Do not take a tub bath, sit in a hot tub or go into a swimming pool until after your first recheck in the office. SPECIAL CARE INSTRUCTIONS: VERY IMPORTANT TO READ AND REVIEW A. Your surgical incision has been closed with a cosmetic suture under the skin that will dissolve in about 6 weeks. In 14 days, you can use a pair of clean scissors and cut the suture that is left outside of the skin at the ends of your incision. 1. The small skin tapes can be removed 7 days after surgery if they have not fallen off by that point. 2. You may keep the wound open to air as much as possible to promote healing after post-op day number 5 unless told otherwise by your doctor. 3. If you think the wound looks like it is becoming infected (redness or worsening drainage) and/or you are experiencing fever, chill or worsening back pain and muscle spasms, contact the office so that we may evaluate you as soon as possible. B. Complications are uncommon, but please contact us if you have any signs or symptoms of: 1. wound infection (fever higher than 102.5 degrees F, redness, separation of wound, drainage, or increasing pain from the incision) 2. blood clots in legs (pain, swelling, redness and warmth in legs) 3. urinary tract infection (fever higher than 102.5 degrees F, burning upon urination or increased frequency of urination) 4. nerve problems (inability to walk on your toes or heels, numbness, loss of bowel or bladder control) 5. any other symptoms that concern you C. Please call the office at if you have any concerns or questions about your operation or recovery. D. No smoking! Smoking drastically decreases the chance of a solid fusion. E. Do not take any anti-inflammatory medications (Indocin, Advil, Motrin, Aspirin, Naprosyn, etc.) as these may inhibit the chance of a solid fusion. Tylenol is okay to take for pain. MANAGING PAIN AFTER SPINAL SURGERY 1. Narcotic medication is intended for short-term use and will be provided for surgical pain. Surgical pain usually lasts for a period of 4-6 weeks. Narcotic medication includes Percocet, Vicodin, Darvocet, Tylenol #3 or Lortab. 2. Longer-term pain is more appropriately treated with non-narcotic medication such as Tylenol ES. 3. Muscle spasm is not appropriately treated with narcotics. Muscle relaxers such as Soma, Flexeril or Skelaxin can be used along with Tylenol ES. 4. Remember that we all live with some "aches and pains". This is not unusual or uncommon after an injury or as we get older. a. Back pain is expected and may include muscle spasms for 4 to 6 weeks after surgery. The pain should gradually improve. If the pain worsens for no apparent reason, please contact the office. b. Intermittent leg pain may also be experienced and should not be concerned about unless it worsens for no apparent reason. If so, please contact the office. 5. We will provide appropriate medication within the normal guidelines of their prescribed use. We will also be very cautious and aware of potential abuse and extended duration of patients' medication needs. a. Pain medications are for your comfort and to assist with sleep and rest so that the tissue can heal. They are not provided in order to return to normal activity and should not be used through the day. To do so or worsening pain at night can result from ongoing tissue damage and development of tolerance to the prescribed medicine. 6. Please allow 2-3 days to process refills. Prescriptions will not be mailed but must be picked up at the office. FOLLOW UP VISIT: Keep your scheduled follow-up appointment. Any questions, please call the office at . Pending Studies at Discharge: No Stand-Alone Forms: [employer], Smoking Cessation Medications and DC Order Prescriptions: New tramadol 50 mg tablet 50 mg PO Q6H PRN (Reason: pain, moderate) Qty: 30 RF: 0 oxycodone 5 mg tablet 5 mg PO Q6H PRN (Reason: pain, severe) Qty: 30 RF: 0 Continued methocarbamol 500 mg Tablet 1,000 mg PO 1200 RF: 0 methocarbamol 500 mg Tablet 500 mg PO 1900 RF: 0 phentermine 15 mg Capsule 15 mg PO QAM RF: 0 tramadol 50 mg Tablet 50 mg PO Q4H PRN (Reason: Pain) RF: 0 buspirone 10 mg Tablet 10 mg PO BID RF: 0 lisinopril 5 mg Tablet 5 mg PO QAM RF: 0 fluticasone propion-salmeterol [Advair Diskus] 100-50 mcg/dose Blister With Device 1 puff INHALATION BID RF: 0 dicyclomine 10 mg Capsule 10 mg PO BID PRN (Reason: upset stomach) RF: 0 escitalopram oxalate [Lexapro] 10 mg Tablet 10 mg PO QAM RF: 0 omeprazole 20 mg Tablet,Delayed Release (Dr/Ec) 20 mg PO BID RF: 0 cholecalciferol (vitamin D3) [Vitamin D3] 50 mcg (2,000 unit) Capsule 50 mcg PO QAM RF: 0 albuterol sulfate 90 mcg/actuation Aerosol Powdr Breath Activated 1 inh INHALATION QID PRN (Reason: sob) RF: 0 Discontinued meloxicam 7.5 mg Tablet 7.5 mg PO QAM RF: 0 Discharge Orders: Discharge Order (Routine); Ordered 04/26/19 Ordered By: Hayes Shea Admission Data Admit Date/Time: 04/24/19 10:09 Attending Provider: Hayes Shea Admit Provider: Hayes Shea Primary Care Provider: Kelechi Brandt Other Providers: Maik Maza
== END 2019-04-26 13:44 | disposition home or self-care (01) | DRG 455 ==
LOC: ASU 06:00 → 3E 10:09

== ENCOUNTER 2022-06-22 11:12 | Observation (INO) ==
--- NOTE | 2022-06-09 09:19 | PAT Medication Instructions ---
Medication Instructions Date of Service June 09, 2022 Home Medications albuterol sulfate 90 mcg/actuation aerosol inhaler 2 puff inhalation Q4 PRN Shortness Of Breath Or Wheezing duloxetine 30 mg capsule,delayed release 90 mg PO QAM gabapentin 300 mg capsule 300 mg PO TID hydrocodone 5 mg-acetaminophen 325 mg tablet 1 tab PO Q6 PRN Pain levothyroxine 25 mcg tablet 25 mcg PO QAM lisinopril 20 mg tablet 20 mg PO QAM melatonin 5 mg tablet 5 mg PO HS PRN Sleep omeprazole 20 mg capsule,delayed release 20 mg PO BID sumatriptan succinate 50 mg tablet 50 mg PO UD PRN Migraine Headache Beet Root 1 cap PO DAILY Probioslim X-Strength 1 cap PO BID ashwagandha extract 120 mg capsule 120 mg PO HS aspirin 81 mg tablet,delayed release 81 mg PO QAM bupropion HCl 150 mg 24 hr tablet, extended release 150 mg PO QAM buspirone 30 mg tablet 30 mg PO BID cholecalciferol (vitamin D3) 50 mcg (2,000 unit) capsule (Vitamin D3) 50 mcg PO DAILY cyanocobalamin (vitamin B-12) 2,500 mcg chewable tablet 2,500 mcg PO DAILY cyclobenzaprine 10 mg tablet 10 mg PO TID PRN Pain evening primrose oil 500 mg capsule 500 mg PO DAILY flaxseed oil 1,000 mg capsule 1,000 mg PO TID loratadine 10 mg tablet 10 mg PO QAM meloxicam 15 mg tablet 15 mg PO QAM montelukast 10 mg tablet (Singulair) 10 mg PO HS ondansetron HCl 8 mg tablet 8 mg PO Q12H PRN Nausea prednisone 10 mg tablet 10 mg PO DAILY turmeric root extract 150 mg-stephanie root extract 25 mg chewable tablet 1 tab PO DAILY umeclidinium 62.5 mcg/actuation blister powder for inhalation (Incruse Ellipta) 1 inh inhalation DAILY ASK your surgeon for instructions meloxicam 15 mg tablet 15 mg PO QAM ASK your prescriber and surgeon aspirin 81 mg tablet,delayed release 81 mg PO QAM STOP taking 2 weeks before surgery (or as soon as possible if surgery is within 2 weeks) Beet Root 1 cap PO DAILY Probioslim X-Strength 1 cap PO BID ashwagandha extract 120 mg capsule 120 mg PO HS evening primrose oil 500 mg capsule 500 mg PO DAILY flaxseed oil 1,000 mg capsule 1,000 mg PO TID turmeric root extract 150 mg-stephanie root extract 25 mg chewable tablet 1 tab PO DAILY DO NOT take the morning of surgery lisinopril 20 mg tablet 20 mg PO QAM cholecalciferol (vitamin D3) 50 mcg (2,000 unit) capsule (Vitamin D3) 50 mcg PO DAILY cyanocobalamin (vitamin B-12) 2,500 mcg chewable tablet 2,500 mcg PO DAILY cyclobenzaprine 10 mg tablet 10 mg PO TID PRN Pain loratadine 10 mg tablet 10 mg PO QAM Take morning of surgery With a small sip of water, OTHERWISE NOTHING TO EAT OR DRINK AFTER MIDNIGHT: albuterol sulfate 90 mcg/actuation aerosol inhaler 2 puff inhalation Q4 PRN Shortness Of Breath Or Wheezing (use if needed; please bring rescue inhaler with you to hospital day of surgery if possible) duloxetine 30 mg capsule,delayed release 90 mg PO QAM gabapentin 300 mg capsule 300 mg PO TID hydrocodone 5 mg-acetaminophen 325 mg tablet 1 tab PO Q6 PRN Pain (if needed) levothyroxine 25 mcg tablet 25 mcg PO QAM omeprazole 20 mg capsule,delayed release 20 mg PO BID sumatriptan succinate 50 mg tablet 50 mg PO UD PRN Migraine Headache (if needed) bupropion HCl 150 mg 24 hr tablet, extended release 150 mg PO QAM buspirone 30 mg tablet 30 mg PO BID ondansetron HCl 8 mg tablet 8 mg PO Q12H PRN Nausea (if needed) prednisone 10 mg tablet 10 mg PO DAILY umeclidinium 62.5 mcg/actuation blister powder for inhalation (Incruse Ellipta) 1 inh inhalation DAILY Take evening before surgery albuterol sulfate 90 mcg/actuation aerosol inhaler 2 puff inhalation Q4 PRN Shortness Of Breath Or Wheezing (if needed) gabapentin 300 mg capsule 300 mg PO TID hydrocodone 5 mg-acetaminophen 325 mg tablet 1 tab PO Q6 PRN Pain (if needed) melatonin 5 mg tablet 5 mg PO HS PRN Sleep (if needed) omeprazole 20 mg capsule,delayed release 20 mg PO BID sumatriptan succinate 50 mg tablet 50 mg PO UD PRN Migraine Headache (if needed) buspirone 30 mg tablet 30 mg PO BID cyclobenzaprine 10 mg tablet 10 mg PO TID PRN Pain (if needed) montelukast 10 mg tablet (Singulair) 10 mg PO HS ondansetron HCl 8 mg tablet 8 mg PO Q12H PRN Nausea (if needed) Other Notes If you have any questions please call us at [phone] or [phone] or [phone] or [phone]
--- NOTE | 2022-06-11 13:04 | Anesthesiology Consultation ---
Date of Service June 11, 2022 Assessment & Plan (1) Encounter for pre-operative examination: - Case discussed with Dr. Harper who advised nothing additional is needed from his standpoint and pt can proceed with surgery at current status. - PCP clearance 06/08/22 [facility]: "...chronic lower back pain s/p lumbar fusion on oxycodone, DJD, chronic knees pain, brachial cleft cyst s/p surgery, hx of cholecystectomy, HTN, hypothyroidism, overactive bladder, PTSD, anxiety, seasonal allergy, hx of ETOH abuse, former smoker, COPD, R ABDIFATAH seen for procedure/surgeon/date hemiarthroplasty to reverse total shoulder replacement...went to [facility] last night (for L knee pain)-was given a shot last night for pain...VSS and overall normal PE...chronic conditions are stable...revised cardiac index of zero...cleared for surgery..." Outpatient joint assessment: Patient is currently scheduled for inpatient pathway. If re-evaluated pending system levels during current pandemic/surgeon requests outpatient pathway, patient is not acceptable candidate for outpatient joint program from anesthesia standpoint per Dr. Harper. - Pt states has used chlorhexidine wipes in the past without any reaction. Chart Review Chart Review: Acceptable Risk for Surgery and Patient seen in Pre Admission Testing Teaching & Discussion Pre-Anesthesia Teaching/Discussion Notes: Instructed NPO after midnight before surgery, except medications with 15 cc of water. Medication instructions provided according to the PAT guidelines. History Surgery Operation Date: 06/22/22 09:35 Proposed Procedures p Left Shoulder Hemiarthroplasty Converted to Reserved Total Shoulder Arthroplasty - Kris Garcia MD Height/Weight Height: 5 ft 1 in Weight: 115.3 kg Allergies Allergy/AdvReac Type Severity Reaction Status Date / Time povidone-iodine Allergy Severe Betadine Verified 06/08/22 15:14 --> MADE HER SKIN RAW adhesive tape Allergy Intermediate Rash Verified 06/08/22 15:14 ibuprofen Allergy Intermediate nausea and Verified 06/09/22 10:16 vomiting Medications Home Medications Medication Instructions Recorded Confirmed Last Taken albuterol sulfate 90 mcg/actuation 2 puff inhalation Q4 PRN Shortness 02/17/21 06/08/22 Unknown aerosol inhaler Of Breath Or Wheezing duloxetine 30 mg capsule,delayed 90 mg PO QAM 02/17/21 06/08/22 Unknown release gabapentin 300 mg capsule 300 mg PO TID 02/17/21 06/08/22 Unknown hydrocodone 5 mg-acetaminophen 325 1 tab PO Q6 PRN Pain 02/17/21 06/08/22 Unknown mg tablet levothyroxine 25 mcg tablet 25 mcg PO QAM 02/17/21 06/08/22 Unknown lisinopril 20 mg tablet 20 mg PO QAM 02/17/21 06/08/22 Unknown melatonin 5 mg tablet 5 mg PO HS PRN Sleep 02/17/21 06/08/22 Unknown omeprazole 20 mg capsule,delayed 20 mg PO BID 02/17/21 06/08/22 Unknown release sumatriptan succinate 50 mg tablet 50 mg PO UD PRN Migraine Headache 02/17/21 06/08/22 Unknown Beet Root 1 cap PO DAILY 06/08/22 06/08/22 Unknown Probioslim X-Strength 1 cap PO BID 06/08/22 06/08/22 Unknown ashwagandha extract 120 mg capsule 120 mg PO HS 06/08/22 06/08/22 Unknown aspirin 81 mg tablet,delayed 81 mg PO QAM 06/08/22 06/08/22 Unknown release bupropion HCl 150 mg 24 hr tablet, 150 mg PO QAM 06/08/22 06/08/22 Unknown extended release buspirone 30 mg tablet 30 mg PO BID 06/08/22 06/08/22 Unknown cholecalciferol (vitamin D3) 50 50 mcg PO DAILY 06/08/22 06/08/22 Unknown mcg (2,000 unit) capsule (Vitamin D3) cyanocobalamin (vitamin B-12) 2,500 mcg PO DAILY 06/08/22 06/08/22 Unknown 2,500 mcg chewable tablet cyclobenzaprine 10 mg tablet 10 mg PO TID PRN Pain 06/08/22 06/08/22 Unknown evening primrose oil 500 mg capsule 500 mg PO DAILY 06/08/22 06/08/22 Unknown flaxseed oil 1,000 mg capsule 1,000 mg PO TID 06/08/22 06/08/22 Unknown loratadine 10 mg tablet 10 mg PO QAM 06/08/22 06/08/22 Unknown meloxicam 15 mg tablet 15 mg PO QAM 06/08/22 06/08/22 Unknown montelukast 10 mg tablet 10 mg PO HS 06/08/22 06/08/22 Unknown (Singulair) ondansetron HCl 8 mg tablet 8 mg PO Q12H PRN Nausea 06/08/22 06/08/22 Unknown prednisone 10 mg tablet 10 mg PO DAILY 06/08/22 06/08/22 Unknown turmeric root extract 150 1 tab PO DAILY 06/08/22 06/08/22 Unknown mg-stephanie root extract 25 mg chewable tablet umeclidinium 62.5 mcg/actuation 1 inh inhalation DAILY 06/08/22 06/08/22 Unknown blister powder for inhalation (Incruse Ellipta) Past Medical History Medical History Anxiety and depression Asthma used rescue inhaler>last evening Chronic back pain Chronic obstructive pulmonary disease Degenerative disc disease GERD (gastroesophageal reflux disease) Controlled and stable History of alcohol abuse History of anemia History of irregular heartbeat NO CARDS Hx of branchial cleft cyst left -- removed ~2015 [facility] Hx of cervical cancer cervical cancer - s/p hysterectomy- no chemo or XRT Hypertension controlled, stable per pt Hypothyroidism Migraine Overactive bladder Post traumatic stress disorder Sleep-disordered breathing snoring and witnessed apneas, denies sleep study Patient denies h/o stroke, seizures, heart attack, heart failure, DM, blood clots or blood transfusions. Exercise / Class Metabolic Activity III < 4 Walking/Shop/Light housework (SOB with usual activities ongoing x 6-7 yrs per pt since weight gain; denies change or worsening; denies chest discomfort) Past Family History Family History Grandfather FHx: throat cancer smoker FHx: brain cancer Mother Atrial fibrillation Other No family history of adverse response to anesthesia Past Surgical History Surgical History H/O shoulder surgery LEFT SHOULDER RESURFACING History of appendectomy History of bilateral tubal ligation History of bladder surgery History of cardiac cath ~2012 at [facility]. No CAD per pt- no stents needed History of cholecystectomy History of conization of cervix History of dilatation and curettage History of lumbar fusion L5-S2 decompression-fusion Grade 1 view, MAC 3, ETT 7. History of tooth extraction History of total hip arthroplasty RT Hx of neck surgery left branchial cleft cyst (~2016 [facility]) with repair of left artery S/P arthroscopy of shoulder left S/P epidural steroid injection S/P vaginal hysterectomy with anterior/posterior repair Past Anesthesia History No Hx of Anesthesia Complications and No Family Hx of Anesthesia Complications History of PONV No Hx of PONV and No Hx of Motion Sickness Social History Smoking Status: Never smoker tobacco type: cigarettes Do You Dip or Chew Tobacco: No Smoking End Date: 12 + YEARS AGO Hx Alcohol Use: No substance use type: does not use Review of Systems Patient denies chest pain, fever, chills, cough, wheezing, or palpitations. Physical Exam Vital Signs Vitals BP 130/87 P 83 TEMP 98.3 SP02 98% on RA RESP 18 Physical Full cervical extension range of motion without pain TMD 3.5 finger breadths Mallampati Score 2 Dentition: edentulous Lungs: normal respiratory effort. Good air movement, clear throughout to auscultation, no adventitious breath sounds Cardiac: regular rate and rhythm, no murmurs noted Carotid arteries: negative bruit bilat Lab Results Anesthesia Preop Results Results Anesthesia Widget: WBC 9.02 K/ul (4.8-10.8) 06/11/22 Hgb 13.0 g/dl (12.0-16.0) 06/11/22 Hct 39.7 % (37.0-47.0) 06/11/22 Plt 296 K/uL (130-400) 06/11/22 Na 140 mmol/L (136-145) 06/11/22 K 4.4 mmol/L (3.5-5.1) 06/11/22 Cl 103 mmol/L (98-107) 06/11/22 CO2 31 mmol/L (21-32) 06/11/22 BUN 19 mg/dl (6-23) 06/11/22 Creat 0.93 mg/dl (0.6-1.2) 06/11/22 Glucose Level 81 mg/dl (70-99(Fasting)) 06/11/22 PT 10.3 Seconds (9.0-12.0) 06/11/22 PTT 27.3 Seconds (21.0-31.0) 06/11/22 INR 1.0 (0.9-1.1) 06/11/22 Urine Color Dark Yellow 06/11/22 Urine Appearance Clear (Clear) 06/11/22 Urine pH 5.5 (4.5-7.5) 06/11/22 Urine Specific [place] 1.026 (1.000-1.030) 06/11/22 Urine Protein Negative (Negative) 06/11/22 Urine Glucose (UA) Negative (Negative) 06/11/22 Urine Ketones Negative (Negative) 06/11/22 Urine Blood Negative (Negative) 06/11/22 Urine Nitrite Negative (Negative) 06/11/22 Urine Bilirubin Negative (Negative) 06/11/22 Urine Urobilinogen Negative (Negative) 06/11/22 Urine Leukocyte Esterase Negative (Negative) 06/11/22 Blood Type O Negative 06/11/22 Antibody Screen NEGATIVE 06/11/22 Testing Electrocardiogram Date: 12/10/21 Sinus rhythm, rate 99 bpm Chest X-Ray Date: 09/04/21 No acute cardiopulmonary process Other Testing Bone scan 04/23/22 1. Three-phase negative bone scan without evidence of infection. 2. Moderately increased delayed activity within the shoulders suggestive of osteoarthritis/chronic remodeling. COVID-19 Risk Screen Screening Information COVID-19 Screen Date: 06/11/22 Exposure 21 Days Family/Household +COVID Last 21 Days: No Exposure 10 Days Any COVID Exposure Last 10 Days: No Symptoms Last 10 Days Experienced COVID Sx Last 10 Days: No + COVID 0-90 Days COVID + in Last 0-90 Days: No
--- NOTE | 2022-06-21 18:50 | History & Physical Report ---
Date of Service June 21, 2022 Assessment & Plan (1) Primary osteoarthritis, left shoulder: Plan: Treatment options discussed with patient. She has pain interfering with her daily activities and has failed conservative measures. She would like to proceed with surgical intervention. Risks, benefits and alternatives to surgery including but not limited to infection, DVT, pain, stiffness, need for revision surgery, damage to blood vessels, damage to nerves, PE, , were discussed with the patient and they wish to proceed. Plan on left shoulder conversion of hemiarthroplasty to reverse total shoulder arthroplasty scheduled for [facility] on 06/22/[address] Garcia. All questions answered. Patient will follow up post op. History of Present Illness Chief Complaint: Left shoulder pain Primary Care Provider: Chelsie Nicholas MD 52yo female with PMHx significant for HTN, COPD, chronic back pain, hypothyroid, migraine, anxiety/depression, PTSD who presents with ongoing left shoulder pain. Patient has history of left shoulder hemiarthroplasty with progressive osteoarthritis left shoulder. Pain is interfering with her daily activities. She has failed conservative measures and would like to proceed with surgical intervention. Patient denies headaches, sweats, fevers, chills, double vision, blurred vision, cough, sore throat, dysphagia, chest pain, sob, wheezing, n/v/d/c, numbness, tingling, fatigue, urinary symptoms, mood disorders. ROS positive for left shoulder pain and stiffness. Allergies Allergy/AdvReac Type Severity Reaction Status Date / Time povidone-iodine Allergy Severe Betadine Verified 06/08/22 15:14 --> MADE HER SKIN RAW adhesive tape Allergy Intermediate Rash Verified 06/08/22 15:14 ibuprofen Allergy Intermediate nausea and Verified 06/09/22 10:16 vomiting Home Medications Medication Instructions Recorded Confirmed Type albuterol sulfate 90 mcg/actuation 2 puff inhalation Q4 PRN Shortness 02/17/21 06/08/22 History aerosol inhaler Of Breath Or Wheezing duloxetine 30 mg capsule,delayed 90 mg PO QAM 02/17/21 06/08/22 History release gabapentin 300 mg capsule 300 mg PO TID 02/17/21 06/08/22 History hydrocodone 5 mg-acetaminophen 325 1 tab PO Q6 PRN Pain 02/17/21 06/08/22 History mg tablet levothyroxine 25 mcg tablet 25 mcg PO QAM 02/17/21 06/08/22 History lisinopril 20 mg tablet 20 mg PO QAM 02/17/21 06/08/22 History melatonin 5 mg tablet 5 mg PO HS PRN Sleep 02/17/21 06/08/22 History omeprazole 20 mg capsule,delayed 20 mg PO BID 02/17/21 06/08/22 History release sumatriptan succinate 50 mg tablet 50 mg PO UD PRN Migraine Headache 02/17/21 06/08/22 History Beet Root 1 cap PO DAILY 06/08/22 06/08/22 History Probioslim X-Strength 1 cap PO BID 06/08/22 06/08/22 History ashwagandha extract 120 mg capsule 120 mg PO HS 06/08/22 06/08/22 History aspirin 81 mg tablet,delayed 81 mg PO QAM 06/08/22 06/08/22 History release bupropion HCl 150 mg 24 hr tablet, 150 mg PO QAM 06/08/22 06/08/22 History extended release buspirone 30 mg tablet 30 mg PO BID 06/08/22 06/08/22 History cholecalciferol (vitamin D3) 50 50 mcg PO DAILY 06/08/22 06/08/22 History mcg (2,000 unit) capsule (Vitamin D3) cyanocobalamin (vitamin B-12) 2,500 mcg PO DAILY 06/08/22 06/08/22 History 2,500 mcg chewable tablet cyclobenzaprine 10 mg tablet 10 mg PO TID PRN Pain 06/08/22 06/08/22 History evening primrose oil 500 mg capsule 500 mg PO DAILY 06/08/22 06/08/22 History flaxseed oil 1,000 mg capsule 1,000 mg PO TID 06/08/22 06/08/22 History loratadine 10 mg tablet 10 mg PO QAM 06/08/22 06/08/22 History meloxicam 15 mg tablet 15 mg PO QAM 06/08/22 06/08/22 History montelukast 10 mg tablet 10 mg PO HS 06/08/22 06/08/22 History (Singulair) ondansetron HCl 8 mg tablet 8 mg PO Q12H PRN Nausea 06/08/22 06/08/22 History prednisone 10 mg tablet 10 mg PO DAILY 06/08/22 06/08/22 History turmeric root extract 150 1 tab PO DAILY 06/08/22 06/08/22 History mg-stpehanie root extract 25 mg chewable tablet umeclidinium 62.5 mcg/actuation 1 inh inhalation DAILY 06/08/22 06/08/22 History blister powder for inhalation (Incruse Ellipta) Past Med/Surg History Medical History Anxiety and depression Asthma used rescue inhaler>last evening Chronic back pain Chronic obstructive pulmonary disease Degenerative disc disease GERD (gastroesophageal reflux disease) Controlled and stable History of alcohol abuse History of anemia History of irregular heartbeat NO CARDS Hx of branchial cleft cyst left -- removed ~2015 [facility] Hx of cervical cancer cervical cancer - s/p hysterectomy- no chemo or XRT Hypertension controlled, stable per pt Hypothyroidism Migraine Overactive bladder Post traumatic stress disorder Sleep-disordered breathing snoring and witnessed apneas, denies sleep study Surgical History H/O shoulder surgery LEFT SHOULDER RESURFACING History of appendectomy History of bilateral tubal ligation History of bladder surgery History of cardiac cath ~2012 at [facility]. No CAD per pt- no stents needed History of cholecystectomy History of conization of cervix History of dilatation and curettage History of lumbar fusion L5-S2 decompression-fusion Grade 1 view, MAC 3, ETT 7. History of tooth extraction History of total hip arthroplasty RT Hx of neck surgery left branchial cleft cyst (~2015 [facility]) with repair of left artery S/P arthroscopy of shoulder left S/P epidural steroid injection S/P vaginal hysterectomy with anterior/posterior repair Family History Grandfather FHx: throat cancer smoker FHx: brain cancer Mother Atrial fibrillation Other No family history of adverse response to anesthesia Social History Smoking Status: Never smoker Smoking End Date: 12 + YEARS AGO; Second Hand Exposure: Yes; Do You Dip or Chew Tobacco: No; Hx Alcohol Use: No Preferred Language: Czech Communication Ability: Effective Bulk Receiver Required: No Beliefs That Will Affect Care: None Current Living Situation: Significant Other Feels Safe at Home: Yes Safety Concerns: Feels Safe At This Time Assistive Devices: Cane and Wheelchair Review of Systems All systems reviewed & are unremarkable except as noted in HPI & below Physical Exam Constitutional: well developed and well nourished; no acute distress Eyes: PERRL, conjunctivae normal, anicteric sclerae ENMT: external ear and nose normal, oropharynx normal Neck: trachea midline, no thyromegaly Respiratory: normal respiratory effort, lungs clear to auscultation Cardiovascular: RRR, no murmur, no edema Musculoskeletal: Left shoulder: well healed incision. Tenderness anterior glenoid and humerus. Weakness and pain with strength testing. 4/5 abduction, 5/5 ER, 3+/5 IR. Mild crepitation. Painful ROM. ER to 45 degrees, FF to 90 degrees, abduction to 90 degrees actively. Skin: no rashes, warm and dry Neurologic: patellar DTR's 2+ bilat, sensation intact Psychiatric: A+Ox3, euthymic affect Results & Data Laboratory Results Mildly elevated CRP at 1.67, normal sed rate at 18, normal WBC count of 8. Diagnostic Findings Left shoulder radiographs demonstrated progressive osteoarthritis with decreased GH joint space, anterior subluxation of humerus suggesting subscapularis tearing vs weakness. Hemiarthroplasty without evidence for loosening.
[~2022-06-22 11:12] MED LIST changes: +BUPIVACAINE 0.5 % 5 MG/1 ML PF 10ML VIAL ONE; -CEFAZOLIN 2000MG 2,000 MG/15 ML SYR IV SCH; +FAMOTIDINE 20 MG TAB PO SCH; +METOCLOPRAMIDE HCL 10 MG TABLET PO SCH; +MIDAZOLAM HCL 1 MG/ML 2ML VIAL ONE; +PROPOFOL IV EMULSION 10 MG/ML 20 ML VIAL IV ONE; +TRANEXAMIC ACID 1,000 MG **IV Intra-op IV SCH; +TRANEXAMIC ACID 1,000 MG **IV Pre-op IV SCH; +VANCOMYCIN HCL 1,750 MG in SODIUM CHLORIDE 0.9% 500 ML IV SCH; +ceFAZolin 2000MG 2,000 MG/15 ML SYR IV SCH; +dexAMETHasone 4 MG TAB PO SCH; +fentaNYL citrate PF 100 MCG/2 ML VIAL ONE
[2022-06-22] MEDS ORDERED: ONDANSETRON INJ 2 MG/ML 2 ML VIAL IV PRN ×2 (12:23→18:20)
[2022-06-22] MEDS ORDERED: PROMETHAZINE HCL 6.25 MG in SODIUM CHLORIDE 0.9% 50 ML IV PRN (12:23)
[2022-06-22] MEDS ORDERED: ATROPINE SULFATE 0.1 MG/ML 10ML SYR IV PRN (12:23)
--- NOTE | 2022-06-22 13:34 | History & Physical Bridge Note ---
Date of Service June 22, 2022 History & Physical Bridge Note I have examined the patient, reviewed the History & Physical and in the interval since the performance of the History & Physical I have noted the following changes of clinical significance: no changes noted
[2022-06-22] MEDS ORDERED: LIDOCAINE 2% MPF LOCAL 5 ML VIAL ONE (14:34)
[2022-06-22] MEDS ORDERED: ROCURONIUM BROMIDE 10 MG/ML 5 ML VIAL IV ONE (14:34)
[2022-06-22] MEDS ORDERED: DEXAMETHASONE SOD INJ 4 MG/ML VIAL ONE (14:35)
[2022-06-22] MEDS ORDERED: ONDANSETRON INJ 2 MG/ML 2 ML VIAL ONE (14:35)
[2022-06-22] MEDS ORDERED: SUGAMMADEX SODIUM 200 MG/2 ML VIAL IV ONE (16:35)
--- NOTE | 2022-06-22 17:23 | Operative Report ---
Post Operative Report Pre & Post Diagnosis Operation Date: 06/22/22 14:25 Pre-Op Diagnosis: Left Shoulder painful hemiarthroplasty with glenoid bone erosion and subscapularis weakness, morbid obesity BMI 48 Post-Op Diagnosis: Left Shoulder painful hemiarthroplasty well fixed component with posterior inferior glenoid erosion retained suture anchor and suture material from prior repair, subscapularis weakness and tendinopathy without a tear, morbid obesity BMI 48 I identified the patient and participated in the time-out.: Yes Procedure Operation Date: 06/22/22 14:25 Actual Procedures p Left Shoulder Hemiarthroplasty explantation and revision to reversed total Shoulder Arthroplasty both humeral and glenoid components, excisional debridement suture anchor, suture material, increased level difficulty due to morbid obesity BMI 48 (Left) - Kris Garcia MD Surgeon Kris Garcia MD Secondary Market Manager Saad DIXON Estimated Blood Loss 150 Findings Consistent with Post-Op Diagnosis Specimens Resurfacing hemiarthroplasty implant with undersurface bone Drains 2 Hemovac Anesthesia Type General Regional Complications none Disposition Disposition: Recovery Room Indications 52-year-old female with chronic pain in her left shoulder over time. 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 She has well fixed resurfacing hemiarthroplasty with some osteophytes that have developed around the edge of the implant and some glenoid erosion radiographically with some anterior subluxation on axial view and some weakness of the subscapularis. Description of Procedure The patient was taken to the operating room and anesthetized under regional block and general anesthetic. The patient was positioned on the operating table in a 30 beachchair position with a towel roll under the medial border of the left scapula. The arm was draped free to be able to manipulate the shoulder as needed. The left upper extremity was prepped and draped in usual sterile fashion. Exam demonstrated forward flexion 180 degrees external rotation 100 degrees internal rotation 70 degrees. Patient was morbidly obese and obese arm as well.. An anterior deltopectoral approach was performed. A longitudinal incision was made in the deltopectoral interval. The skin was incised sharply. Subcutaneous flaps were elevated off the fascia. The cephalic vein was dissected out and retracted lateral with the deltoid. There was dense scar tissue between the pectoralis muscle and deltoid this was carefully dissected down to an equally scarred clavipectoral fascia. This was divided overlying the conjoined tendons we could identify the landmarks of the conjoined tendon and the coracoid process was identified. Dissection was kept lateral to the conjoined tendon. Superior to the CA ligament was released. The scarred subscapularis tissue was identified and the thickened scarred bursa was dissected off of the underlying subscapularis tissue. The upper 50% of the subscapularis had good thick tissue but the lower aspect was a thin tissue and capsular scar tissue and subscapularis tissue all in one plane. Adhesions were released underlying the posterior deltoid and bleeders were cauterized as needed. The biceps was previously tenodesed to the pectoralis tendon.. The upper centimeter of the pectoralis was rereleased for inferior exposure. The subscapularis tendon was taken down off the lesser tuberosity using a subperiosteal peel dissection. A #1 Vicryl traction suture was placed into the free end of the subscapularis tendon and capsule. Retractors were readjusted and the inferior lateral osteophytes were all resected using an artist chisel. A Chacon elevator was used to assist in releasing the capsule of the neck of the humerus. Attention was first taken to removing the humeral resurfacing implant. An oscillating saw was used to cut directly at the base of the implant and then it was gently removed with a small artist chisel osteotome without difficulty. The underlying bone demonstrated demonstrated good bone ingrowth in about 50% of the under lying bone but the other 50% had some soft bone that could have been more AVN or stress shielding potentially. The implant was sent to pathology for evaluation. Attention was then taken to the humeral preparation. The cutting guide was placed into the humeral head. It was positioned at 20 of retroversion. Oscillating saw was used to revise the prior cut and resect some of the remaining humeral head keeping the cut above the level of the posterior rotator cuff insertion site. I did release supraspinatus tissue maintaining infraspinatus and teres minor attachment. There were suture anchors from prior subscapularis repair that had to be removed in order to instrument the canal. These were peek Helicoil type anchors. Suture tapes and sutures were also removed. The humerus was then prepared for the stem. I used the ascend flex stem from [employer]. The sizing broaches were used followed by trial broaches up to a size 2B long which had the appropriate fit and fill. The appropriate sized cut protector was placed. The humerus was then retracted posterior to the glenoid. Glenoid still had superior and anterior articular's cartilage and had posterior inferior bone that was eburnated with minor bone loss only. This time the labrum was resected the capsule release was performed anterior inferiorly posterior inferiorly with electrocautery on bone and a Chacon elevator. An inferior glenoid osteophyte was resected. The glenoid was sized for a 25 baseplate. The 10 degree inferior tilt guide for the baseplate was positioned and the central guidewire was placed. The cannulated reamer for the 25 baseplate was used. The reamer for the central boss was used. Bone was very hard and sclerotic. We used the hard bone reamer. The depth gauge was used to measure for the central screw. The Tornier perform baseplate was screwed into position with the 30 mm central screw. Excellent hard bone fixation was obtained.. The base plate was transfixed with superior and inferior locking screws and anterior and posterior compression screws with stable fixation. The fan reamer was used for the 25 millimeter glenoid sphere. After irrigation the 25 mm symmetrical glenoid sphere was impacted onto the baseplate and the screw was tightened. Attention was taken back to the humerus. The cut protector was removed and the +0 low offset humeral tray trial was assembled to the trial stem rotated appropriately to get bony coverage and then screwed in position. A trial reduction was performed. Patient did have muscle relaxation. A +6, 36 mm reversed trial insert demonstrated good stability and no shuck. The trials were removed. 3 drill holes are made into the harder bone in the bicipital groove area and 3 #5 FiberWire sutures were placed transosseously. The canal was irrigated with pulse saline solution. The final component was assembled. The final component was ascend flex 2 B long stem assembled to +0 low offset tray and a +6, 36 mm reversed polyethylene insert. This was then impacted into the humerus with a tight press-fit. It was reduced to the glenoid sphere. Stability was verified. Subscapularis was repaired with the #5 FiberWire sutures using Roderick-Tomas suture technique. Lateral row soft tissue repair was performed with #2 FiberWire [id number] sutures. The pectoralis was repaired with #2 FiberWire [id number] sutures . The arm was taken through a range of motion which demonstrated 170 degrees of flexion 90 degrees of abduction 70 degrees external rotation without any tension on repair. The implant was stable through the range of motion tested. The wound was copiously irrigated. 2 Hemovac drains were placed. The deltopectoral interval was closed with [id number] #1 Vicryl sutures. The subcutaneous tissues were closed with 2-0 Vicryl sutures. The skin was closed with ngoc. Sterile dressings Xeroform 4 x 4's OpSite were applied and a shoulder immobilizer. There was increased level difficulty adding 45 minutes to the procedure due to her morbid obesity. Saad DIXON my physician pediatric medical assistant assisted in the procedure to the entire procedure including patient positioning arm positioning prepping and draping soft tissue retraction instrument management suture management and performed the subcutaneous and skin closure and will participate in the postoper ative care of the patient. I attest to the content of the Intraoperative Record and any orders documented therein. Any exceptions are noted below.
--- NOTE | 2022-06-22 17:37 | Anesthesiology Progress Note ---
Date of Service June 22, 2022 Anesthesia Post Procedure Vital Signs Vital Signs: Temp Pulse Pulse Resp BP Pulse Ox O2 Del Method 06/22/22 17:30 94 H 20 137/99 100 Oxymask 06/22/22 17:20 36.1 C L 96 H 18 160/99 H 99 Oxymask 06/22/22 12:04 36.3 C L 92 H 18 161/109 H 99 Room Air O2 Flow Rate 06/22/22 17:30 6 06/22/22 17:20 6 06/22/22 12:04 Pain Intensity Left Shoulder: Pain Intensity: 8 Transfer of Care Handoff Completed per policy Notes Mental Status: alert / awake / arousable Patient Amnestic to Procedure: Yes Nausea / Vomiting: adequately controlled Pain: adequately controlled Airway Patency, RR, SpO2: stable & adequate BP & HR: stable & adequate Hydration State: stable & adequate Anesthetic Complications: no major complications apparent
[2022-06-22] MEDS: fentaNYL citrate PF 100 MCG/2 ML VIAL IV PRN ×2 (17:46→17:52)
--- NOTE | 2022-06-22 18:03 | XRay Report ---
XR shoulder LT min 2V routine HISTORY: 52 years-old Female Post shoulder surgery left shoulder arthroplasty COMPARISON: Shoulder radiographs 05/03/2013 TECHNIQUE: 2 views of the left shoulder FINDINGS: Reverse shoulder arthroplasty demonstrates satisfactory alignment with overlying skin ngoc, expect ed postoperative soft tissue swelling and deep tissue air with surgical drainage catheter. No acute f racture, alignment or unexpected opaque foreign body. IMPRESSION: Reverse total joint arthroplasty with expected postoperative changes. ACT 112: Negative or not required by law. The above report was generated using voice recognition software. It may contain grammatical, syntax o r spelling errors. Electronically signed by: Edilson Snow M.D. 06/22/2022 6:01 PM
[2022-06-22] MEDS ORDERED: SUMAtriptan succinate 50 MG TAB PO PRN (18:20)
[2022-06-22] MEDS ORDERED: SODIUM CHLORIDE 0.9% 1000ML 1,000 ML IV SCH (18:20)
[2022-06-22] MEDS ORDERED: bisacodyL 10 MG SUPP PR PRN (18:20)
[2022-06-22] MEDS ORDERED: METOCLOPRAMIDE HCL INJ 5 MG/ML 2 ML VIAL IV PRN (18:20)
[2022-06-22] MEDS ORDERED: ALBUTEROL HFA 8 GM INHALER INH PRN (18:20)
[2022-06-22] MEDS ORDERED: MAGNESIUM HYDROXIDE SUSP 30 ML UDC PO PRN (18:20)
[2022-06-22] MEDS ORDERED: CYCLOBENZAPRINE HCL 10 MG TAB PO PRN (18:20)
[2022-06-22] MEDS ORDERED: NALOXONE HCL 0.4 MG/1 ML VIAL/CARP IV PRN (18:20)
[2022-06-22] MEDS: GABAPENTIN 300 MG CAP PO SCH (20:00)
[2022-06-22] MEDS: DOCUSATE SODIUM 100 MG CAP PO SCH (20:00)
[2022-06-22] MEDS: ACETAMINOPHEN 500 MG TAB PO SCH (20:00)
[2022-06-22] MEDS: PANTOprazole 40 MG TAB PO SCH (20:00)
[2022-06-22] MEDS: busPIRone 15 MG TAB PO SCH (20:00)
[2022-06-22] MEDS: oxyCODONE HCL IR 5 MG TAB (IMMEDIATE RELEASE) PO PRN (20:01)
[2022-06-22] MEDS ORDERED: SENNA 8.6 MG TAB PO SCH (21:00)
[2022-06-22] MEDS ORDERED: MONTELUKAST SODIUM 10 MG TABLET PO SCH (21:00)
[2022-06-22] MEDS: ceFAZolin 2000MG 2,000 MG/15 ML SYR IV SCH (22:53)
[2022-06-22] MEDS: HYDROmorphone INJ 0.5 MG/0.5 ML SYR IV PRN (22:54)
[2022-06-23] MEDS: oxyCODONE HCL IR 5 MG TAB (IMMEDIATE RELEASE) PO PRN ×3 (01:08→11:50)
[2022-06-23] MEDS: HYDROmorphone INJ 0.5 MG/0.5 ML SYR IV PRN (02:46)
[2022-06-23] MEDS: ACETAMINOPHEN 500 MG TAB PO SCH ×2 (06:04→15:11)
[2022-06-23] MEDS ORDERED: LEVOTHYROXINE SODIUM 25 MCG TABLET PO SCH (06:30)
[2022-06-23 07:32] LABS: Basophils # (auto) 0.01 K/uL (0-0.2); Basophils % (auto) 0.1 %; Hematocrit (blood only) 34.1 % (37.0-47.0); Hemoglobin 11.4 g/dl (12.0-16.0); Immature Granulocytes # (auto) 0.07 K/uL (0.01-0.20); Immature Granulocytes % (auto) 0.5 %; Lymphocytes % (auto) 6.9 %; Mean Corpuscular Hgb Conc 33.4 g/dL (32.0-36.0); Mean Corpuscular Volume 92.7 fL (80.0-100.0); Mean Platelet Volume 11.3 fL (9.4-12.4); Monocytes # (auto) 0.48 K/uL (0.11-0.59); Monocytes % (auto) 3.7 %; Neutrophils # (auto) 11.54 K/uL (1.40-6.50); Neutrophils % (auto) 88.8 %; Platelet Count 328 K/uL (130-400); RDW Coefficient of Variation 13.2 % (11.5-14.5); RDW Standard Deviation 44.7 fL (36.4-46.3); Red Blood Count 3.68 M/uL (4.20-5.40)
[2022-06-23 07:54] LABS: BUN Creatinine Ratio 14.9 (10-20); Calcium 8.6 mg/dl (8.6-10.3); Creatinine Clr Calc Pharmacy 91.4 ml/min; Est GFR (Non-African American) 77.7 ml/min; Potassium 3.9 mmol/L (3.5-5.1)
--- NOTE | 2022-06-23 07:54 | Orthopedic Progress Note ---
Date of Service June 23, 2022 Assessment & Plan (1) Primary osteoarthritis, left shoulder: Plan: Postop day 1 status post left reverse total shoulder arthroplasty/conversion from a hemiarthroplasty PT/OT protocols. Nonweightbearing left upper extremity. DVT prophylaxis aspirin p.o. daily, SCDs, GEE hart. Pain management as written. BMP pending DC planning-plan for discharge to home today. Admission and Anticipated Discharge Date Admission Date: June 22, 2022 Subjective Postop day 1 Patient sitting up in bed awake and alert. States that her block is wearing off this morning. She is having a little bit more pain but is tolerating well. Pain medications are helping. She has no other complaints at this time. Physical Exam Physical Exam: Dressings are clean, dry, and intact. Sling is in place. She has good range of motion of her fingers and wrist at this time. She has some slight numbness of her left thumb that is slowly resolving. Capillary refill is less than 2 seconds. Hemovac drainage was approximately 100 cc from the previous shift. Results & Data Vital Signs (Past 12 Hours) Vital Signs Temp Pulse Resp BP Pulse Ox O2 Del Method 06/23/22 07:00 36.8 C 93 H 18 110/75 96 Room Air 06/23/22 02:31 36.6 C 98 H 18 121/83 94 Room Air 06/22/22 21:31 36.8 C 101 H 18 103/72 94 Room Air 06/22/22 20:24 36.7 C 97 H 18 140/97 98 Room Air Laboratory Results Laboratory Results WBC 13.00 K/ul (4.8-10.8) H 06/23/22 07:08 RBC 3.68 M/uL (4.20-5.40) L 06/23/22 07:08 Hgb 11.4 g/dl (12.0-16.0) L 06/23/22 07:08 Hct 34.1 % (37.0-47.0) L 06/23/22 07:08 MCV 92.7 fL (80.0-100.0) 06/23/22 07:08 MCH 31.0 pg (25.0-34.0) 06/23/22 07:08 MCHC 33.4 g/dL (32.0-36.0) 06/23/22 07:08 RDW Std Deviation 44.7 fL (36.4-46.3) 06/23/22 07:08 RDW Coeff of Morgan 13.2 % (11.5-14.5) 06/23/22 07:08 Plt Count 328 K/uL (130-400) 06/23/22 07:08 MPV 11.3 fL (9.4-12.4) 06/23/22 07:08 Immature Gran % (Auto) 0.5 % 06/23/22 07:08 Neut % (Auto) 88.8 % 06/23/22 07:08 Lymph % (Auto) 6.9 % 06/23/22 07:08 [place] % (Auto) 3.7 % 06/23/22 07:08 Eos % (Auto) 0.0 % 06/23/22 07:08 Baso % (Auto) 0.1 % 06/23/22 07:08 Neut # (Auto) 11.54 K/uL (1.40-6.50) H 06/23/22 07:08 Lymph # (Auto) 0.90 K/uL (1.2-3.4) L 06/23/22 07:08 [place] # (Auto) 0.48 K/uL (0.11-0.59) 06/23/22 07:08 Eos # (Auto) 0.00 K/uL (0-0.50) 06/23/22 07:08 Baso # (Auto) 0.01 K/uL (0-0.2) 06/23/22 07:08 Immature Gran # (Auto) 0.07 K/uL (0.01-0.20) 06/23/22 07:08 SARS-CoV-2, RNA, NAAT NEGATIVE (NEGATIVE) 06/22/22 Unknown Blood Type O Negative 06/22/22 11:40 Antibody Screen NEGATIVE 06/22/22 11:40 Impressions Shoulder X-Ray 06/22/22 17:21 XR shoulder LT min 2V routine HISTORY: 52 years-old Female Post shoulder surgery left shoulder arthroplasty COMPARISON: Shoulder radiographs 05/03/2013 TECHNIQUE: 2 views of the left shoulder FINDINGS: Reverse shoulder arthroplasty demonstrates satisfactory alignment with overlying skin ngoc, expected postoperative soft tissue swelling and deep tissue air with surgical drainage catheter. No acute fracture, alignment or unexpected opaque foreign body. IMPRESSION: Reverse total joint arthroplasty with expected postoperative changes. ACT 112: Negative or not required by law. The above report was generated using voice recognition software. It may contain grammatical, syntax or spelling errors. Electronically signed by: Edilson Snow M.D. 06/22/2022 6:01 PM
[2022-06-23] MEDS: PANTOprazole 40 MG TAB PO SCH (07:55)
[2022-06-23] MEDS: DOCUSATE SODIUM 100 MG CAP PO SCH (07:56)
[2022-06-23] MEDS: GABAPENTIN 300 MG CAP PO SCH ×2 (07:56→15:11)
[2022-06-23] MEDS: busPIRone 15 MG TAB PO SCH (07:56)
[2022-06-23] MEDS: ceFAZolin 2000MG 2,000 MG/15 ML SYR IV SCH (08:26)
--- NOTE | 2022-06-23 08:28 | Hospitalist Consultation ---
Date of Consultation June 23, 2022 Assessment & Plan (1) Primary osteoarthritis, left shoulder: - Pain management, bowel regimen and DVT ppx per the primary team - PT/OT consults, pt is planning on outpatient therapy - Hgb of 11 today compared to previously being 13 - noted pt with hx of anemia - encourage multivitamin plus iron post surgically - Can continue ostobiflex and other vitamins and supplements - Pt would like to transition off meloxicam ( held prior to surgery) and back to celebrex because she thinks this worked better for her. - will defer to primary team (2) Hypertension: - May continue lisinopril 20 mg every morning (3) Chronic obstructive pulmonary disease: -Uses Incruse Ellipta, may continue, albuterol rescue inhaler - Reports hx of smoking cigarettes, no longer uses. Pt has a vape which she uses marijuana oil in it occasionally - discussed that oil can cause intermediate manager issues and worsen breathing - she is agreeable to switching to marijuana gummies instead if needed for pain. Consider pain management referral as an outpatient. (4) GERD (gastroesophageal reflux disease): -Continue omeprazole (5) Depression: -Continue bupropion 150 mg qam, duloxetine 90 mg qam (6) Hypothyroidism: - Cont levothyroxine 25 mcg, Recommend follow up with PCP for trending TSH. DVT ppx: - teds, scds CODE: Full code Dispo: From home, likely to remain in the hospital x 1 day with possible discharge today A total of 45 minutes were spent with greater than 50% of that time face to face with the patient, personally reviewing all current laboratories, imaging studies, past medication reconciliation, outpatient chart review, and discussion with specialists to collaborate care for the patient with attending. Please see attending documentation for corrections and/or additions. Supervising Physician Co-Signing Physician Notes Pt seen and examined by me, care coordinated w/ Zeb Stephens PA-C, pls refer to her note above for further detail. Pt is a 52 yo F with HTN, COPD, anemia, hypothyroidism, history of alcohol abuse, PTSD, anxiety and depression who is s/p left total shoulder arthroplasty by Dr. Mcclain on 06/22/2022 (yesterday). Medicine has been consulted for medical management. Currently laying in bed, in no acute distress. She is awake alert oriented answ ering questions appropriately. Breathing comfortably on room air, saturating 96%. Lungs are clear to auscultation, heart sounds regular. Abdomen soft nontender nondistended, positive bowel sounds, obese. Left upper extremity in a sling. No lower extremity edema noted. Patient is moving extremities. Skin is warm and dry. Continue to closely monitor, plan as above. MD Jarod History of Present Illness Reason for Consultation: Medical management Requesting Physician: Dr. Garcia Attending Physician: Kris Garcia MD History of Present Illness This is a 52 yo F with PMHx of cervical cancer status post hysterectomy, HTN, COPD, anemia, hypothyroidism, history of alcohol abuse, PTSD, anxiety and depression who presented to the hospital for elective left total shoulder arthroplasty by Dr. Mcclain on 06/22/2022. Medicine has been consulted for medical management. Pt reports having her shoulder operated on went well, pain is very well controlled. She has been up most of the night and states didn't sleep but this happens occasionally to her. Pt is tolerating soft liquid diet as her teeth have all been pulled due to hx of gum disease. Dr. Alegria with oromaxillofacial surgery is working with her to get the molds created for teeth vs implants. This has been ongoing for at least the past 1 year since her teeth were pulled. She is working to loose weight, and has lost 10 lbs within the past few months - although it is difficult due to her multiple joint issues. Previously she has had lumbar decompression fusion, right hip surgery, and is planning to have her left knee replaced in the near future. Pt is taking multiple supplements for joint health. Also notes that she was most recently on meloxicam but does not see as much pain relief with this compared to her previous RX of celebrex, and is asking if she can be switched back to taking this. Her bowels last moved 3 days ago - discussed miralax and stool softeners daily until has a bowel move ment. Lives at home with daughter in law, son and multiple grandchildren who are able to help her when she goes home. Allergies Allergy/AdvReac Type Severity Reaction Status Date / Time povidone-iodine Allergy Severe Betadine Verified 06/22/22 12:24 --> MADE HER SKIN RAW adhesive tape Allergy Intermediate Rash Verified 06/22/22 12:24 ibuprofen Allergy Intermediate nausea and Verified 06/22/22 12:24 vomiting Home Medications Medication Instructions Recorded Confirmed Type albuterol sulfate 90 mcg/actuation 2 puff inhalation Q4 PRN Shortness 02/17/21 06/23/22 History aerosol inhaler Of Breath Or Wheezing duloxetine 30 mg capsule,delayed 90 mg PO QAM 02/17/21 06/23/22 History release gabapentin 300 mg capsule 300 mg PO TID 02/17/21 06/23/22 History levothyroxine 25 mcg tablet 25 mcg PO QAM 02/17/21 06/23/22 History lisinopril 20 mg tablet 20 mg PO QAM 02/17/21 06/23/22 History melatonin 5 mg tablet 5 mg PO HS PRN Sleep 02/17/21 06/23/22 History omeprazole 20 mg capsule,delayed 20 mg PO BID 02/17/21 06/23/22 History release sumatriptan succinate 50 mg tablet 50 mg PO UD PRN Migraine Headache 02/17/21 06/23/22 History (Imitrex) Beet Root 1 cap PO DAILY 06/08/22 06/23/22 History Probioslim X-Strength 1 cap PO BID 06/08/22 06/23/22 History ashwagandha extract 120 mg capsule 120 mg PO HS 06/08/22 06/23/22 History aspirin 81 mg tablet,delayed 81 mg PO QAM 06/08/22 06/23/22 History release bupropion HCl 150 mg 24 hr tablet, 150 mg PO QAM 06/08/22 06/23/22 History extended release (Wellbutrin XL) buspirone 30 mg tablet 30 mg PO BID 06/08/22 06/23/22 History cholecalciferol (vitamin D3) 50 50 mcg PO DAILY 06/08/22 06/23/22 History mcg (2,000 unit) capsule (Vitamin D3) cyanocobalamin (vitamin B-12) 2,500 mcg PO DAILY 06/08/22 06/23/22 History 2,500 mcg chewable tablet cyclobenzaprine 10 mg tablet 10 mg PO TID PRN Pain 06/08/22 06/23/22 History evening primrose oil 500 mg capsule 500 mg PO DAILY 06/08/22 06/23/22 History flaxseed oil 1,000 mg capsule 1,000 mg PO TID 06/08/22 06/23/22 History loratadine 10 mg tablet 10 mg PO QAM 06/08/22 06/23/22 History montelukast 10 mg tablet 10 mg PO HS 06/08/22 06/23/22 History (Singulair) ondansetron HCl 8 mg tablet 8 mg PO Q12H PRN Nausea 06/08/22 06/23/22 History turmeric root extract 150 1 tab PO DAILY 06/08/22 06/23/22 History mg-stephanie root extract 25 mg chewable tablet umeclidinium 62.5 mcg/actuation 1 inh inhalation DAILY 06/08/22 06/23/22 History blister powder for inhalation (Incruse Ellipta) acetaminophen 500 mg tablet 1,000 mg PO Q8 14 days #84 tabs 06/23/22 Rx (Tylenol Extra Strength) celecoxib 200 mg capsule 200 mg PO QAM 06/23/22 06/23/22 History polyethylene glycol 3350 17 gram 17 g PO DAILY PRN constipation #5 06/23/22 06/23/22 Rx oral powder packet (Miralax) ea Patient History Medical History (Updated 06/23/22 @ 08:23 by Cecily Stephens PA-C) Anxiety and depression Asthma used rescue inhaler>last evening Chronic back pain Chronic obstructive pulmonary disease Degenerative disc disease GERD (gastroesophageal reflux disease) Controlled and stable History of alcohol abuse History of anemia History of irregular heartbeat NO CARDS Hx of branchial cleft cyst left -- removed ~2015 [facility] Hx of cervical cancer cervical cancer - s/p hysterectomy- no chemo or XRT Hypertension controlled, stable per pt Hypothyroidism Migraine Overactive bladder Post traumatic stress disorder Sleep-disordered breathing snoring and witnessed apneas, denies sleep study Surgical History H/O shoulder surgery LEFT SHOULDER RESURFACING History of appendectomy History of bilateral tubal ligation History of bladder surgery History of cardiac cath ~2012 at [facility]. No CAD per pt- no stents needed History of cholecystectomy History of conization of cervix History of dilatation and curettage History of lumbar fusion L5-S2 decompression-fusion Grade 1 view, MAC 3, ETT 7. History of tooth extraction History of total hip arthroplasty RT Hx of neck surgery left branchial cleft cyst (~2015 [facility]) with repair of left artery S/P arthroscopy of shoulder left S/P epidural steroid injection S/P vaginal hysterectomy with anterior/posterior repair Family History Grandfather FHx: throat cancer smoker FHx: brain cancer Mother Atrial fibrillation Other No family history of adverse response to anesthesia Social History Smoking Status: Never smoker Smoking End Date: 12 + YEARS AGO; Second Hand Exposure: Yes; Do You Dip or Chew Tobacco: No; Hx Alcohol Use: No Preferred Language: [place] Citizen Communication Ability: Effective [employer] Area Supervisor Required: No Beliefs That Will Affect Care: None Current Living Situation: Significant Other Feels Safe at Home: Yes Safety Concerns: Feels Safe At This Time Assistive Devices: Cane and Wheelchair Review of Systems Review of Systems: Constitutional: No fever, sweats or chills Eyes: No diplopia, no worsening or blurred vision ENT: normal hearing, no trouble swallowing, + gum disease Respiratory: No cough, sputum, dyspnea at rest or on exertion Cardiovascular: No chest pain, tightness or palpitations Abdomen: No pain, nausea, vomiting, diarrhea or constipation Musculoskeletal: + As per HPI, no current joint pain, calf pain, swelling Neurologic: No weakness, numbness/tingling, or balance problems Psychiatric: No anxiety or depression Skin: No rash or itch Physical Exam Physical Exam: General: awake, alert, no apparent distress, + obese with BMI of 48 Head: Normocephalic, atraumatic ENT: PERRL, EOMI, no pharyngeal exudate, mucous membranes moist, edentulous. Chest: Clear to auscultation, on room air, no adventitious breath sounds Cardiac: Regular rate and rhythm, no murmur, no JVD, normal peripheral pulses, good capillary refill Abdominal: NABS x 4 quadrants, soft, nondistended, nontender to palpation, no rebound or guarding Extremities: Left shoulder in sling, icepack in place, VLAD drain present draining serosanginous bloody outs, otherwise Normal inspection, no peripheral edema or erythema, calfs nontender to palpation Psych: Normal mood and affect Neuro: AAO x 3, strength intact bilaterally and rated 5/5, no motor deficits, speech is clear, no peripheral sensory deficits Results & Data Results & Data Vital Signs (Past 12 Hours) Vital Signs Temp Pulse Resp BP Pulse Ox O2 Del Method 06/23/22 07:00 36.8 C 93 H 18 110/75 96 Room Air 06/23/22 02:31 36.6 C 98 H 18 121/83 94 Room Air 06/22/22 21:31 36.8 C 101 H 18 103/72 94 Room Air 06/22/22 20:24 36.7 C 97 H 18 140/97 98 Room Air Laboratory Results 06/23/22 06/23/22 06/22/22 07:08 07:08 Unknown WBC 13.00 H RBC 3.68 L Hgb 11.4 L Hct 34.1 L MCV 92.7 MCH 31.0 MCHC 33.4 RDW Std Deviation 44.7 RDW Coeff of Morgan 13.2 Plt Count 328 MPV 11.3 Immature Gran % (Auto) 0.5 Neut % (Auto) 88.8 Lymph % (Auto) 6.9 Dundy % (Auto) 3.7 Eos % (Auto) 0.0 Baso % (Auto) 0.1 Neut # (Auto) 11.54 H Lymph # (Auto) 0.90 L Dundy # (Auto) 0.48 Eos # (Auto) 0.00 Baso # (Auto) 0.01 Immature Gran # (Auto) 0.07 Sodium 136 Potassium 3.9 Chloride 103 Carbon Dioxide 25 Anion Gap 8 BUN 13 Creatinine 0.87 Est Cr Clr Drug Dosing 91.4 Est GFR ( Amer) 90.0 Est GFR (Non-Af Amer) 77.7 BUN/Creatinine Ratio 14.9 Glucose 126 H Calcium 8.6 SARS-CoV-2, RNA, NAAT NEGATIVE Blood Type Antibody Screen 06/22/22 11:40 WBC RBC Hgb Hct MCV MCH MCHC RDW Std Deviation RDW Coeff of Morgan Plt Count MPV Immature Gran % (Auto) Neut % (Auto) Lymph % (Auto) Dundy % (Auto) Eos % (Auto) Baso % (Auto) Neut # (Auto) Lymph # (Auto) Dundy # (Auto) Eos # (Auto) Baso # (Auto) Immature Gran # (Auto) Sodium Potassium Chloride Carbon Dioxide Anion Gap BUN Creatinine Est Cr Clr Drug Dosing Est GFR ( Amer) Est GFR (Non-Af Amer) BUN/Creatinine Ratio Glucose Calcium SARS-CoV-2, RNA, NAAT Blood Type O Negative Antibody Screen NEGATIVE
[2022-06-23] MEDS ORDERED: ASPIRIN 81 MG ECTAB PO SCH (09:00)
[2022-06-23] MEDS ORDERED: lisinopril 20 MG TAB PO SCH (09:00)
[2022-06-23] MEDS ORDERED: UMECLIDINIUM BROMIDE 62.5MCG/BLISTER 7 PUFFS/INHALER INH SCH (09:00)
[2022-06-23] MEDS ORDERED: CYANOCOBALAMIN (B-12) 2,500 MCG TABLET SL SCH (09:00)
[2022-06-23] MEDS ORDERED: LORATADINE 10 MG TAB PO SCH (09:00)
[2022-06-23] MEDS ORDERED: CHOLECALCIFEROL 1,000 UNITS 25 MCG TAB PO SCH (09:00)
[2022-06-23] MEDS ORDERED: buPROPion XL 150 MG TABCR PO SCH (09:00)
[2022-06-23] MEDS ORDERED: MULTIVITAMIN TAB PO SCH (09:00)
[2022-06-23] MEDS ORDERED: DULoxetine HCL 30 MG CAP PO SCH (09:00)
--- NOTE | 2022-06-24 07:16 | Discharge Summary ---
Date of Service June 24, 2022 Admission HPI Per Admitting Provider 52yo female with PMHx significant for HTN, COPD, chronic back pain, hypothyroid, migraine, anxiety/depression, PTSD who presents with ongoing left shoulder pain. Patient has history of left shoulder hemiarthroplasty with progressive osteoarthritis left shoulder. Pain is interfering with her daily activities. She has failed conservative measures and would like to proceed with surgical intervention. Patient denies headaches, sweats, fevers, chills, double vision, blurred vision, cough, sore throat, dysphagia, chest pain, sob, wheezing, n/v/d/c, numbness, tingling, fatigue, urinary symptoms, mood disorders. ROS pos itive for left shoulder pain and stiffness. Admission Exam Per Admitting Provider Constitutional: well developed and well nourished; no acute distress Eyes: PERRL, conjunctivae normal, anicteric sclerae ENMT: external ear and nose normal, oropharynx normal Neck: trachea midline, no thyromegaly Respiratory: normal respiratory effort, lungs clear to auscultation Cardiovascular: RRR, no murmur, no edema Musculoskeletal: Left shoulder: well healed incision. Tenderness anterior glenoid and humerus. Weakness and pain with strength testing. 4/5 abduction, 5/5 ER, 3+/5 IR. Mild crepitation. Painful ROM. ER to 45 degrees, FF to 90 degrees, abduction to 90 degrees actively. Skin: no rashes, warm and dry Neurologic: patellar DTR's 2+ bilat, sensation intact Psychiatric: A+Ox3, euthymic affect Principal Diagnosis Left shoulder osteoarthritis Discharge Exam Dressings are clean, dry, and intact. Sling is in place. She has good range of motion of her fingers and wrist at this time. She has some slight numbness of her left thumb that is slowly resolving. Capillary refill is less than 2 seconds. Hemovac drainage was approximately 100 cc from the previous shift. Discharge Data Allergies Allergy/AdvReac Type Severity Reaction Status Date / Time povidone-iodine Allergy Severe Betadine Verified 06/22/22 12:24 --> MADE HER SKIN RAW adhesive tape Allergy Intermediate Rash Verified 06/22/22 12:24 ibuprofen Allergy Intermediate nausea and Verified 06/22/22 12:24 vomiting Consultations 06/18/22 12:38 Consult Hospitalist Routine Procedures Performed Operation Date: 06/22/22 14:25 Actual Procedures p Left Shoulder Hemiarthroplasty Converted to Reserved Total Shoulder Arthroplasty(Left) - Kris Garcia MD Ordered Studies 06/22/22 05:00 US - OR guided needle placemen Routine Hospital Course (1) Primary osteoarthritis, left shoulder: Postop day 1 status post left reverse total shoulder arthroplasty/conversion from a hemiarthroplasty PT/OT protocols. Nonweightbearing left upper extremity. DVT prophylaxis aspirin p.o. daily, SCDs, GEE hart. Pain management as written. BMP pending DC planning-plan for discharge to home today. Lab Results 06/22/22 06/22/22 06/23/22 Range/Units 11:40 Unknown 07:08 WBC 13.00 H (4.8-10.8) K/ul RBC 3.68 L (4.20-5.40) M/uL Hgb 11.4 L (12.0-16.0) g/dl Hct 34.1 L (37.0-47.0) % MCV 92.7 (80.0-100.0) fL MCH 31.0 (25.0-34.0) pg MCHC 33.4 (32.0-36.0) g/dL RDW Std Deviation 44.7 (36.4-46.3) fL RDW Coeff of Morgan 13.2 (11.5-14.5) % Plt Count 328 (130-400) K/uL MPV 11.3 (9.4-12.4) fL Immature Gran % (Auto) 0.5 % Neut % (Auto) 88.8 % Lymph % (Auto) 6.9 % Owen % (Auto) 3.7 % Eos % (Auto) 0.0 % Baso % (Auto) 0.1 % Neut # (Auto) 11.54 H (1.40-6.50) K/uL Lymph # (Auto) 0.90 L (1.2-3.4) K/uL Owen # (Auto) 0.48 (0.11-0.59) K/uL Eos # (Auto) 0.00 (0-0.50) K/uL Baso # (Auto) 0.01 (0-0.2) K/uL Immature Gran # (Auto) 0.07 (0.01-0.20) K/uL Sodium (136-145) mmol/L Potassium (3.5-5.1) mmol/L Chloride (98-107) mmol/L Carbon Dioxide (21-32) mmol/L Anion Gap (3-11) BUN (6-23) mg/dl Creatinine (0.6-1.2) mg/dl Est Cr Clr Drug Dosing ml/min Est GFR ( Amer) ml/min Est GFR (Non-Af Amer) ml/min BUN/Creatinine Ratio (10-20) Glucose (70-99(Fasting)) mg/dl Calcium (8.6-10.3) mg/dl SARS-CoV-2, RNA, NAAT NEGATIVE (NEGATIVE) Blood Type O Negative Antibody Screen NEGATIVE 06/23/22 Range/Units 07:08 WBC (4.8-10.8) K/ul RBC (4.20-5.40) M/uL Hgb (12.0-16.0) g/dl Hct (37.0-47.0) % MCV (80.0-100.0) fL MCH (25.0-34.0) pg MCHC (32.0-36.0) g/dL RDW Std Deviation (36.4-46.3) fL RDW Coeff of Morgan (11.5-14.5) % Plt Count (130-400) K/uL MPV (9.4-12.4) fL Immature Gran % (Auto) % Neut % (Auto) % Lymph % (Auto) % Owen % (Auto) % Eos % (Auto) % Baso % (Auto) % Neut # (Auto) (1.40-6.50) K/uL Lymph # (Auto) (1.2-3.4) K/uL Owen # (Auto) (0.11-0.59) K/uL Eos # (Auto) (0-0.50) K/uL Baso # (Auto) (0-0.2) K/uL Immature Gran # (Auto) (0.01-0.20) K/uL Sodium 136 (136-145) mmol/L Potassium 3.9 (3.5-5.1) mmol/L Chloride 103 (98-107) mmol/L Carbon Dioxide 25 (21-32) mmol/L Anion Gap 8 (3-11) BUN 13 (6-23) mg/dl Creatinine 0.87 (0.6-1.2) mg/dl Est Cr Clr Drug Dosing 91.4 ml/min Est GFR ( Amer) 90.0 ml/min Est GFR (Non-Af Amer) 77.7 ml/min BUN/Creatinine Ratio 14.9 (10-20) Glucose 126 H (70-99(Fasting)) mg/dl Calcium 8.6 (8.6-10.3) mg/dl SARS-CoV-2, RNA, NAAT (NEGATIVE) Blood Type Antibody Screen Total Time Total Time Spent Total Time Spent (In Minutes): 20 Discharge Plan Discharge Items Patient Disposition: Home - Self-Care Reason For Visit: Left Shoulder Osteoarthritis Discharge Diagnosis: Left shoulder osteoarthritis Activity: Per Instructions section Weightbearing: Left non-weightbearing Non-emergency contact: Surgeon Call non-emergency contact if: you have any medication questions, you have a fever, your temperature is above 101, your wound has increased redness and your wound has increased drainage Follow-up/Referrals: Kris Garcia MD [Surgeon] - (Follow up with Dr Garcia or his PA in 2 weeks from the day of your surgery for your first post operative visit. ) Chelsie Nicholas MD [Primary Care Provider] - Diet: Regular Addtl Attending Provider Instructions: ACTIVITY RECOMMENDATIONS: SELF CARE INSTRUCTIONS AFTER TOTAL SHOULDER ARTHROPLASTY REVERSE A. You may do daily exercises as taught in physical therapy while in hospital. No lifting with the operative arm. B. You are to wear your sling/immobilizer at all times EXCEPT when performing your daily exercises and for hygiene purposes. C. You may perform dry, daily dressing changes. Please keep your incision covered. You may shower 48 hours after surgery. Do not apply soap or any ointment/lotions directly over incision. Do not soak incision in bath tub/swimming pool. D. You may use ice as needed to operative shoulder. SPECIAL CARE INSTRUCTIONS: VERY IMPORTANT TO READ AND REVIEW A. There are a few signs you need to watch for after you are home. Call [facility] at [phone] if you experience any of the followin. Increased severe shoulder pain. Some pain is expected especially when you exercise. 2. Increased swelling in you shoulder or arm; pain or swelling in either upper extremity. 3. Any fluid drainage from the incision. 4. Shortness of breath or chest pain. B. Please call [facility] at [phone] if you have any questions or concerns about your operation or recovery. C. Call your physician if: 1. Temperature is greater than 101 degrees (F). 2. Pain is not relieved by prescribed pain medications. 3. Increase drainage or redness from incision. 4. Unanswered questions or concerns. FOLLOW UP VISIT: Please call [facility] at [phone] to schedule a follow up appointment with Dr. Garcia or his PA in 12-14 days from your surgery date. Stand-Alone Forms: My [facility], Smoking Cessation Medications and DC Order Prescriptions: New acetaminophen [Tylenol Extra Strength] 500 mg Tablet 1,000 mg PO Q8 14 Days Qty: 84 0RF polyethylene glycol 3350 [Miralax] 17 gram powder in packet 17 g PO DAILY PRN (Reason: constipation) Qty: 5 0RF cefadroxil 500 mg capsule 500 mg PO BID Qty: 14 0RF oxycodone 5 mg tablet 5 mg PO Q4H MDD 6 PRN (Reason: pain) Qty: 30 0RF Continued lisinopril 20 mg Tablet 20 mg PO QAM sumatriptan succinate [Imitrex] 50 mg tablet 50 mg PO UD PRN (Reason: Migraine Headache) levothyroxine 25 mcg tablet 25 mcg PO QAM gabapentin 300 mg capsule 300 mg PO TID omeprazole 20 mg capsule,delayed release(DR/EC) 20 mg PO BID albuterol sulfate 90 mcg/actuation HFA aerosol inhaler 2 puff INHALATION Q4 PRN (Reason: Shortness Of Breath Or Wheezing) duloxetine 30 mg capsule,delayed release(DR/EC) 90 mg PO QAM Rx Instructions: Take with 60 mg to = 90mg melatonin 5 mg Tablet 5 mg PO HS PRN (Reason: Sleep) cyclobenzaprine 10 mg Tablet 10 mg PO TID PRN (Reason: Pain) aspirin 81 mg Tablet,Delayed Release (Dr/Ec) 81 mg PO QAM buspirone 30 mg Tablet 30 mg PO BID montelukast [Singulair] 10 mg Tablet 10 mg PO HS loratadine 10 mg Tablet 10 mg PO QAM bupropion HCl [Wellbutrin XL] 150 mg Tablet Extended Release 24 Hr 150 mg PO QAM evening primrose oil 500 mg Capsule 500 mg PO DAILY Rx Instructions: give with meal/snack flaxseed oil 1,000 mg Capsule 1,000 mg PO TID Rx Instructions: administer with meals cholecalciferol (vitamin D3) [Vitamin D3] 50 mcg (2,000 unit) Capsule 50 mcg PO DAILY Incruse Ellipta 62.5 mcg/actuation Blister With Device 1 inh INHALATION DAILY cyanocobalamin (vitamin B-12) 2,500 mcg Tablet,Chewable 2,500 mcg PO DAILY turmeric root-stephanie root ext 150-25 mg Tablet,Chewable 1 tab PO DAILY ashwagandha extract 120 mg Capsule 120 mg PO HS Beet Root 1 cap PO DAILY Probioslim X-Strength 1 cap PO BID ondansetron HCl 8 mg Tablet 8 mg PO Q12H PRN (Reason: Nausea) celecoxib 200 mg capsule 200 mg PO QAM Discharge Orders: Discharge Order (Routine); Ordered 06/23/22 Ordered By: Sanjay Cerda Admission Data Admit Date/Time: 06/22/22 17:21 Attending Provider: Kris Garcia Admit Provider: Kris Garcia Primary Care Provider: Chelsie Nicholas Other Providers: Nikhil Mott ; Vijay Olivera Other Interventions: Discharge Summary Assessment (RN) Last Done: 06/23/22 14:08
== END 2022-06-23 16:20 | disposition home or self-care (01) ==
LOC: 3E 11:12 → ASU 11:12

== ENCOUNTER 2022-09-17 07:04 | Observation (INO) ==
--- NOTE | 2022-08-26 16:21 | PAT Medication Instructions ---
Medication Instructions Date of Service August 26, 2022 Home Medications Medication Instructions Recorded polyethylene glycol 3350 17 gram 17 g PO DAILY PRN constipation #5 06/23/22 oral powder packet (Miralax) ea albuterol sulfate 90 mcg/actuation aerosol inhaler 2 puff inhalation Q4 PRN duloxetine 30 mg capsule,delayed release 90 mg PO QAM gabapentin 300 mg capsule 300 mg PO TID levothyroxine 25 mcg tablet 25 mcg PO QAM lisinopril 20 mg tablet 20 mg PO QAM melatonin 5 mg tablet 5 mg PO HS PRN omeprazole 20 mg capsule,delayed release 20 mg PO BID sumatriptan succinate 50 mg tablet (Imitrex) 50 mg PO UD PRN Beet Root 1 cap PO DAILY Probioslim X-Strength 1 cap PO BID ashwagandha extract 120 mg capsule 120 mg PO HS aspirin 81 mg tablet,delayed release 81 mg PO QAM bupropion HCl 150 mg 24 hr tablet, extended release (Wellbutrin XL) 150 mg PO QAM buspirone 30 mg tablet 30 mg PO BID cholecalciferol (vitamin D3) 50 mcg (2,000 unit) capsule (Vitamin D3) 50 mcg PO DAILY cyanocobalamin (vitamin B-12) 2,500 mcg chewable tablet 2,500 mcg PO DAILY cyclobenzaprine 10 mg tablet 10 mg PO TID PRN evening primrose oil 500 mg capsule 500 mg PO DAILY flaxseed oil 1,000 mg capsule 1,000 mg PO TID loratadine 10 mg tablet 10 mg PO QAM montelukast 10 mg tablet (Singulair) 10 mg PO HS ondansetron HCl 8 mg tablet 8 mg PO Q12H PRN turmeric root extract 150 mg-stephanie root extract 25 mg chewable tablet 1 tab PO DAILY umeclidinium 62.5 mcg/actuation blister powder for inhalation (Incruse Ellipta) 1 inh inhalation DAILY celecoxib 200 mg capsule 200 mg PO QAM polyethylene glycol 3350 17 gram oral powder packet (Miralax) 17 g PO DAILY PRN Cbd 1 dose PO DAILY PRN oxycodone 5 mg tablet 5 mg PO Q6H PRN Continue as directed umeclidinium 62.5 mcg/actuation blister powder for inhalation (Incruse Ellipta) 1 inh inhalation DAILY ondansetron HCl 8 mg tablet 8 mg PO Q12H PRN(if needed) sumatriptan succinate 50 mg tablet (Imitrex) 50 mg PO UD PRN(if needed) ASK your surgeon for instructions celecoxib 200 mg capsule 200 mg PO QAM STOP taking 2 weeks before surgery (or as soon as possible if surgery is within 2 weeks) turmeric root extract 150 mg-stephanie root extract 25 mg chewable tablet 1 tab PO DAILY evening primrose oil 500 mg capsule 500 mg PO DAILY flaxseed oil 1,000 mg capsule 1,000 mg PO TID Beet Root 1 cap PO DAILY Probioslim X-Strength 1 cap PO BID ashwagandha extract 120 mg capsule 120 mg PO HS DO NOT take the morning of surgery lisinopril 20 mg tablet 20 mg PO QAM Cbd 1 dose PO DAILY PRN polyethylene glycol 3350 17 gram oral powder packet (Miralax) 17 g PO DAILY PRN loratadine 10 mg tablet 10 mg PO QAM cyclobenzaprine 10 mg tablet 10 mg PO TID PRN cholecalciferol (vitamin D3) 50 mcg (2,000 unit) capsule (Vitamin D3) 50 mcg PO DAILY cyanocobalamin (vitamin B-12) 2,500 mcg chewable tablet 2,500 mcg PO DAILY Take morning of surgery With a small sip of water, OTHERWISE NOTHING TO EAT OR DRINK AFTER MIDNIGHT: albuterol sulfate 90 mcg/actuation aerosol inhaler 2 puff inhalation Q4 PRN(use if needed; please bring with you to hospital day of surgery if possible) duloxetine 30 mg capsule,delayed release 90 mg PO QAM gabapentin 300 mg capsule 300 mg PO TID levothyroxine 25 mcg tablet 25 mcg PO QAM omeprazole 20 mg capsule,delayed release 20 mg PO BID oxycodone 5 mg tablet 5 mg PO Q6H PRN(if needed) buspirone 30 mg tablet 30 mg PO BID bupropion HCl 150 mg 24 hr tablet, extended release (Wellbutrin XL) 150 mg PO QAM aspirin 81 mg tablet,delayed release 81 mg PO QAM (unless directed otherwise by surgeon) Take evening before surgery albuterol sulfate 90 mcg/actuation aerosol inhaler 2 puff inhalation Q4 PRN(if needed) gabapentin 300 mg capsule 300 mg PO TID melatonin 5 mg tablet 5 mg PO HS PRN(if needed) omeprazole 20 mg capsule,delayed release 20 mg PO BID oxycodone 5 mg tablet 5 mg PO Q6H PRN(if needed) montelukast 10 mg tablet (Singulair) 10 mg PO HS cyclobenzaprine 10 mg tablet 10 mg PO TID PRN(if needed) buspirone 30 mg tablet 30 mg PO BID Other Notes If you have any questions please call us at [phone] or [phone] or [phone] or [phone]
--- NOTE | 2022-09-04 12:16 | Anesthesiology Consultation ---
Date of Service September 04, 2022 Assessment & Plan (1) Encounter for pre-operative examination: Plan - s/p Left shoulder hemiarthroplasty 06/22/2223 Grade 1 view, MAC 3, ETT 7.5 + PNB. - Outpatient joint assessment: Patient is currently scheduled for inpatient pathway. If re-evaluated pending system levels during current pandemic/surgeon requests outpatient pathway, patient is not acceptable candidate for outpatient joint program from anesthesia standpoint per Dr. Harper. - Pt states has used chlorhexidine wipes in the past without any reaction. Chart Review Chart Review: Acceptable Risk for Surgery and Patient seen in Pre Admission Testing Teaching & Discussion Pre-Anesthesia Teaching/Discussion Notes: Instructed NPO after midnight before surgery, except medications with 15 cc of water. Medication instructions provided according to the PAT guidelines. History Surgery Operation Date: 09/17/22 11:50 Proposed Procedures p Left Total Knee Arthroplasty - Kris Garcia MD Height/Weight Height: 5 ft 1 in Weight: 114.9 kg Allergies Allergy/AdvReac Type Severity Reaction Status Date / Time povidone-iodine Allergy Severe Betadine Verified 08/26/22 15:09 --> MADE HER SKIN RAW adhesive tape Allergy Intermediate Rash Verified 08/26/22 15:09 ibuprofen Allergy Intermediate nausea and Verified 08/26/22 15:09 vomiting Medications Home Medications Medication Instructions Recorded Confirmed Last Taken albuterol sulfate 90 mcg/actuation 2 puff inhalation Q4 PRN Shortness 02/17/21 08/26/22 06/19/22 18:00 aerosol inhaler Of Breath Or Wheezing duloxetine 30 mg capsule,delayed 90 mg PO QAM 02/17/21 08/26/22 06/22/22 09:00 release gabapentin 300 mg capsule 300 mg PO TID 02/17/21 08/26/22 06/22/22 09:00 levothyroxine 25 mcg tablet 25 mcg PO QAM 02/17/21 08/26/22 06/22/22 09:00 lisinopril 20 mg tablet 20 mg PO QAM 02/17/21 08/26/22 06/21/22 09:00 melatonin 5 mg tablet 5 mg PO HS PRN Sleep 02/17/21 08/26/22 06/20/22 21:00 omeprazole 20 mg capsule,delayed 20 mg PO BID 02/17/21 08/26/22 06/22/22 09:00 release sumatriptan succinate 50 mg tablet 50 mg PO UD PRN Migraine Headache 02/17/21 08/26/22 Unknown (Imitrex) Beet Root 1 cap PO DAILY 06/08/22 08/26/22 06/11/22 09:00 Probioslim X-Strength 1 cap PO BID 06/08/22 08/26/22 Unknown ashwagandha extract 120 mg capsule 120 mg PO HS 06/08/22 08/26/22 06/11/22 20:00 aspirin 81 mg tablet,delayed 81 mg PO QAM 06/08/22 08/26/22 06/19/22 09:00 release bupropion HCl 150 mg 24 hr tablet, 150 mg PO QAM 06/08/22 08/26/22 06/22/22 09:00 extended release (Wellbutrin XL) buspirone 30 mg tablet 30 mg PO BID 06/08/22 08/26/22 06/22/22 09:00 cholecalciferol (vitamin D3) 50 50 mcg PO DAILY 06/08/22 08/26/22 06/19/22 09:00 mcg (2,000 unit) capsule (Vitamin D3) cyanocobalamin (vitamin B-12) 2,500 mcg PO DAILY 06/08/22 08/26/22 06/19/22 09:00 2,500 mcg chewable tablet cyclobenzaprine 10 mg tablet 10 mg PO TID PRN Pain 06/08/22 08/26/22 06/21/22 20:00 evening primrose oil 500 mg capsule 500 mg PO DAILY 06/08/22 08/26/22 06/15/22 18:00 flaxseed oil 1,000 mg capsule 1,000 mg PO TID 06/08/22 08/26/22 06/15/22 18:00 loratadine 10 mg tablet 10 mg PO QAM 06/08/22 08/26/22 06/21/22 09:00 montelukast 10 mg tablet 10 mg PO HS 06/08/22 08/26/22 06/20/22 21:00 (Singulair) ondansetron HCl 8 mg tablet 8 mg PO Q12H PRN Nausea 06/08/22 08/26/22 Unknown turmeric root extract 150 1 tab PO DAILY 06/08/22 08/26/22 06/11/22 09:00 mg-stephanie root extract 25 mg chewable tablet umeclidinium 62.5 mcg/actuation 1 inh inhalation DAILY 06/08/22 08/26/22 06/22/22 09:00 blister powder for inhalation (Incruse Ellipta) celecoxib 200 mg capsule 200 mg PO QAM 06/23/22 08/26/22 Unknown polyethylene glycol 3350 17 gram 17 g PO DAILY PRN constipation #5 06/23/22 08/26/22 Unknown oral powder packet (Miralax) ea Cbd 1 dose PO DAILY PRN anxiety/pain 08/26/22 08/26/22 Unknown oxycodone 5 mg tablet 5 mg PO Q6H PRN Pain 08/26/22 08/26/22 Unknown Past Medical History Medical History (Updated 09/04/22 @ 12:35 by Madai Doan PA-C) Anxiety and depression Asthma controlled, stable per pt; last rescue inhaler use 1 week ago Chronic back pain Chronic obstructive pulmonary disease Degenerative disc disease GERD (gastroesophageal reflux disease) Controlled and stable History of alcohol abuse History of anemia History of irregular heartbeat NO CARDS Hx of branchial cleft cyst left -- removed ~2015 [facility] [place] Hx of cervical cancer cervical cancer - s/p hysterectomy- no chemo or XRT Hypertension controlled, stable per pt Hypothyroidism Migraine Overactive bladder Post traumatic stress disorder Sleep-disordered breathing snoring and witnessed apneas, denies sleep study Patient denies h/o stroke, seizures, heart attack, heart failure, DM, blood clots or blood transfusions. Exercise / Class Metabolic Activity III < 4 Walking/Shop/Light housework (SOB with usual activities ongoing x 6-7 yrs per pt since weight gain; notes mild improvement since last PAT appointment with doing water therapy; denies chest discomfort) Past Family History Family History Grandfather FHx: throat cancer smoker FHx: brain cancer Mother Atrial fibrillation Other No family history of adverse response to anesthesia Past Surgical History Surgical History H/O shoulder surgery LEFT SHOULDER RESURFACING History of appendectomy History of bilateral tubal ligation History of bladder surgery History of cardiac cath ~2012 at [facility]. No CAD per pt- no stents needed History of cholecystectomy History of conization of cervix History of dilatation and curettage History of lumbar fusion L5-S2 decompression-fusion Grade 1 view, MAC 3, ETT 7. History of tooth extraction History of total hip arthroplasty RT Hx of neck surgery left branchial cleft cyst (~2015 [facility]) with repair of left artery S/P arthroscopy of shoulder left S/P epidural steroid injection S/P shoulder hemiarthroplasty Left Shoulder with Dr Garcia 06/2022 [facility] S/P vaginal hysterectomy with anterior/posterior repair Past Anesthesia History No Hx of Anesthesia Complications and No Family Hx of Anesthesia Complications History of PONV No Hx of PONV and No Hx of Motion Sickness Social History Smoking Status: Former smoker tobacco type: cigarettes Do You Dip or Chew Tobacco: No Smoking End Date: 12 + years ago Hx Alcohol Use: Yes alcohol intake frequency: holidays/special occasions only Hx Substance Use: Yes (CBD gummies daily/prn (advised to hold prior to surgery)) substance use type: does not use Review of Systems Patient denies chest pain, fever, chills, cough, wheezing, or palpitations. Physical Exam Vital Signs Vitals BP 128/81 P 85 TEMP 98.2 SP02 99% on RA RESP 18 Physical Full cervical extension range of motion without pain TMD 3.5 finger breadths Mallampati Score 2 Dentition: edentulous Lungs: normal respiratory effort. Good air movement, clear throughout to auscultation, no adventitious breath sounds Cardiac: regular rate and rhythm, no murmurs noted Carotid arteries: negative bruit bilat Lab Results Anesthesia Preop Results Results Anesthesia Widget: WBC 6.03 K/ul (4.8-10.8) 09/04/22 Hgb 11.7 g/dl (12.0-16.0) L 09/04/22 Hct 35.8 % (37.0-47.0) L 09/04/22 Plt 297 K/uL (130-400) 09/04/22 Na 139 mmol/L (136-145) 09/04/22 K 4.1 mmol/L (3.5-5.1) 09/04/22 Cl 106 mmol/L (98-107) 09/04/22 CO2 27 mmol/L (21-32) 09/04/22 BUN 20 mg/dl (6-23) 09/04/22 Creat 0.98 mg/dl (0.6-1.2) 09/04/22 Glucose Level 72 mg/dl (70-99(Fasting)) 09/04/22 PT 10.5 Seconds (9.0-12.0) 09/04/22 PTT 29.7 Seconds (21.0-31.0) 09/04/22 INR 1.0 (0.9-1.1) 09/04/22 Urine Color Yellow 09/04/22 Urine Appearance Clear (Clear) 09/04/22 Urine pH 5.5 (4.5-7.5) 09/04/22 Urine Specific [place] 1.022 (1.000-1.030) 09/04/22 Urine Protein Negative (Negative) 09/04/22 Urine Glucose (UA) Negative (Negative) 09/04/22 Urine Ketones Trace (Negative) H 09/04/22 Urine Blood Negative (Negative) 09/04/22 Urine Nitrite Negative (Negative) 09/04/22 Urine Bilirubin Negative (Negative) 09/04/22 Urine Urobilinogen Negative (Negative) 09/04/22 Urine Leukocyte Esterase Negative (Negative) 09/04/22 Blood Type O Negative 09/04/22 Antibody Screen NEGATIVE 09/04/22 Testing Electrocardiogram Date: 12/10/21 Sinus rhythm, rate 99 bpm Chest X-Ray Date: 09/04/22 No active disease in the chest Other Testing Bone scan 04/23/22 1. Three-phase negative bone scan without evidence of infection. 2. Moderately increased delayed activity within the shoulders suggestive of osteoarthritis/chronic remodeling. COVID-19 Risk Screen Screening Information COVID-19 Screen Date: 09/04/22 Exposure 21 Days Family/Household +COVID Last 21 Days: No Exposure 10 Days Any COVID Exposure Last 10 Days: No Symptoms Last 10 Days Experienced COVID Sx Last 10 Days: No + COVID 0-90 Days COVID + in Last 0-90 Days: No
--- NOTE | 2022-09-16 11:23 | History & Physical Report ---
Date of Service September 16, 2022 Assessment & Plan (1) Primary osteoarthritis of left knee: Plan: Treatment options kaden with patient. She has failed conservative measures. She would like to proceed with surgical intervention. Risks, benefits and alternatives to surgery including but not limited to infection, DVT, pain, stiffness, need for revision surgery, damage to blood vessels, damage to nerves, PE, , were discussed with the patient and they wish to proceed. Plan for left total knee arthroplasty scheduled for September 17 at [facility] with Dr. Garcia. Plan on aspirin 81 mg twice daily for 1 month postop for DVT prophylaxis. Plan on home health physical therapy postop. All questions answered. Patient will follow-up postop. History of Present Illness Chief Complaint: Left knee pain Primary Care Provider: Chelsie Nicholas MD 52yo female with PMHx significant for HTN, COPD, chronic back pain, hypothyroid, migraine, anxiety/depression, PTSD who presents with ongoing left knee pain. Pain is interfering with her daily activities. She has failed conservative measures including injections and anti-inflammatories. She like to proceed with surgical intervention. Patient denies headaches, sweats, fevers, chills, double vision, blurred vision, cough, sore throat, dysphagia, chest pain, sob, wheezing, n/v/d/c, numbness, tingling, fatigue, urinary symptoms, mood disorders. ROS positive for left knee pain and stiffness. Allergies Allergy/AdvReac Type Severity Reaction Status Date / Time povidone-iodine Allergy Severe Betadine Verified 08/26/22 15:09 --> MADE HER SKIN RAW adhesive tape Allergy Intermediate Rash Verified 08/26/22 15:09 ibuprofen Allergy Intermediate nausea and Verified 08/26/22 15:09 vomiting Home Medications Medication Instructions Recorded Confirmed Type albuterol sulfate 90 mcg/actuation 2 puff inhalation Q4 PRN Shortness 02/17/21 08/26/22 History aerosol inhaler Of Breath Or Wheezing duloxetine 30 mg capsule,delayed 90 mg PO QAM 02/17/21 08/26/22 History release gabapentin 300 mg capsule 300 mg PO TID 02/17/21 08/26/22 History levothyroxine 25 mcg tablet 25 mcg PO QAM 02/17/21 08/26/22 History lisinopril 20 mg tablet 20 mg PO QAM 02/17/21 08/26/22 History melatonin 5 mg tablet 5 mg PO HS PRN Sleep 02/17/21 08/26/22 History omeprazole 20 mg capsule,delayed 20 mg PO BID 02/17/21 08/26/22 History release sumatriptan succinate 50 mg tablet 50 mg PO UD PRN Migraine Headache 02/17/21 08/26/22 History (Imitrex) Beet Root 1 cap PO DAILY 06/08/22 08/26/22 History Probioslim X-Strength 1 cap PO BID 06/08/22 08/26/22 History ashwagandha extract 120 mg capsule 120 mg PO HS 06/08/22 08/26/22 History aspirin 81 mg tablet,delayed 81 mg PO QAM 06/08/22 08/26/22 History release bupropion HCl 150 mg 24 hr tablet, 150 mg PO QAM 06/08/22 08/26/22 History extended release (Wellbutrin XL) buspirone 30 mg tablet 30 mg PO BID 06/08/22 08/26/22 History cholecalciferol (vitamin D3) 50 50 mcg PO DAILY 06/08/22 08/26/22 History mcg (2,000 unit) capsule (Vitamin D3) cyanocobalamin (vitamin B-12) 2,500 mcg PO DAILY 06/08/22 08/26/22 History 2,500 mcg chewable tablet cyclobenzaprine 10 mg tablet 10 mg PO TID PRN Pain 06/08/22 08/26/22 History evening primrose oil 500 mg capsule 500 mg PO DAILY 06/08/22 08/26/22 History flaxseed oil 1,000 mg capsule 1,000 mg PO TID 06/08/22 08/26/22 History loratadine 10 mg tablet 10 mg PO QAM 06/08/22 08/26/22 History montelukast 10 mg tablet 10 mg PO HS 06/08/22 08/26/22 History (Singulair) ondansetron HCl 8 mg tablet 8 mg PO Q12H PRN Nausea 06/08/22 08/26/22 History turmeric root extract 150 1 tab PO DAILY 06/08/22 08/26/22 History mg-stephanie root extract 25 mg chewable tablet umeclidinium 62.5 mcg/actuation 1 inh inhalation DAILY 06/08/22 08/26/22 History blister powder for inhalation (Incruse Ellipta) celecoxib 200 mg capsule 200 mg PO QAM 06/23/22 08/26/22 History polyethylene glycol 3350 17 gram 17 g PO DAILY PRN constipation #5 06/23/22 08/26/22 Rx oral powder packet (Miralax) ea Cbd 1 dose PO DAILY PRN anxiety/pain 08/26/22 08/26/22 History oxycodone 5 mg tablet 5 mg PO Q6H PRN Pain 08/26/22 08/26/22 History Past Med/Surg History Medical History (Updated 09/16/22 @ 11:22 by Saad Alvarado PA-C) Anxiety and depression Asthma controlled, stable per pt; last rescue inhaler use 1 week ago Chronic back pain Chronic obstructive pulmonary disease Degenerative disc disease GERD (gastroesophageal reflux disease) Controlled and stable History of alcohol abuse History of anemia History of irregular heartbeat NO CARDS Hx of branchial cleft cyst left -- removed ~2015 [facility] Hx of cervical cancer cervical cancer - s/p hysterectomy- no chemo or XRT Hypertension controlled, stable per pt Hypothyroidism Migraine Overactive bladder Post traumatic stress disorder Sleep-disordered breathing snoring and witnessed apneas, denies sleep study Surgical History H/O shoulder surgery LEFT SHOULDER RESURFACING History of appendectomy History of bilateral tubal ligation History of bladder surgery History of cardiac cath ~2012 at [facility]. No CAD per pt- no stents needed History of cholecystectomy History of conization of cervix History of dilatation and curettage History of lumbar fusion L5-S2 decompression-fusion Grade 1 view, MAC 3, ETT 7. History of tooth extraction History of total hip arthroplasty RT Hx of neck surgery left branchial cleft cyst (~2015 [facility]) with repair of left artery S/P arthroscopy of shoulder left S/P epidural steroid injection S/P shoulder hemiarthroplasty Left Shoulder with Dr Garcia 06/2022 [facility] S/P vaginal hysterectomy with anterior/posterior repair Family History Grandfather FHx: throat cancer smoker FHx: brain cancer Mother Atrial fibrillation Other No family history of adverse response to anesthesia Social History Smoking Status: Former smoker Smoking End Date: 12 + years ago; Second Hand Exposure: Yes; Do You Dip or Chew Tobacco: No; Tobacco Cessation Education Requested by Patient: No Hx Alcohol Use: Yes Hx Substance Use: Yes (CBD gummies daily/prn (advised to hold prior to surgery)) Preferred Language: Chinese Communication Ability: Effective 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 Required: No Beliefs That Will Affect Care: None Current Living Situation: Significant Other Other Information That Helps Us Care for You: No Feels Safe at Home: Yes Safety Concerns: Feels Safe At This Time Assistive Devices: Cane and Wheelchair Review of Systems All systems reviewed & are unremarkable except as noted in HPI & below Physical Exam Constitutional: well developed and well nourished; no acute distress Eyes: PERRL, conjunctivae normal, anicteric sclerae ENMT: external ear and nose normal, oropharynx normal Neck: trachea midline, no thyromegaly Respiratory: normal respiratory effort, lungs clear to auscultation Cardiovascular: RRR, no murmur, no edema Musculoskeletal: Left knee: Range of motion is 0 to 120 degrees. Varus thrust. There is varus alignment. Moderate effusion. Tenderness medial joint line. Crepitation with range of motion. Positive Erin's. Stable to valgus and varus stress test. Skin: no rashes, warm and dry Neurologic: patellar DTR's 2+ bilat, sensation intact Psychiatric: A+Ox3, euthymic affect Results & Data Diagnostic Findings Left knee radiographs demonstrate varus alignment. She has moderate joint space narrowing medial compartment, not quite [id number]. There is particular osteophytes. There is mild subluxation of the femur on tibia.
[~2022-09-17 07:04] MED LIST changes: +BUPIVACAINE 0.25% PF 30 ML VIAL ONE; +DEXAMETHASONE SOD INJ 4 MG/ML VIAL ONE; +EPINEPHrine INJ 1 MG/ML AMP ONE; -LR 15ML/HR IV SCH; +LR 500ML BOLUS, THEN 15ML/HR IV SCH; +LR 60ML/HR IV SCH; -MIDAZOLAM HCL 1 MG/ML 2ML VIAL ONE; -PROPOFOL IV EMULSION 10 MG/ML 20 ML VIAL IV ONE; +ROPIVACAINE 0.5% HCL/PF 150 MG, BUPIVACAINE 0.75% MPF 20 ML, EPINEPHrine 30MG/30ML (OR ... INSTIL SCH; -VANCOMYCIN HCL 1,750 MG in SODIUM CHLORIDE 0.9% 500 ML IV SCH; -fentaNYL citrate PF 100 MCG/2 ML VIAL ONE
--- NOTE | 2022-09-17 07:29 | History & Physical Bridge Note ---
Date of Service September 17, 2022 History & Physical Bridge Note I have examined the patient, reviewed the History & Physical and in the interval since the performance of the History & Physical I have noted the following changes of clinical significance: no changes noted
[2022-09-17] MEDS ORDERED: GABAPENTIN 600 MG TAB PO STA (07:37)
[2022-09-17] MEDS ORDERED: MIDAZOLAM HCL 1 MG/ML 2ML VIAL ONE (07:47)
[2022-09-17] MEDS ORDERED: fentaNYL citrate PF 100 MCG/2 ML VIAL ONE (07:47)
[2022-09-17] MEDS ORDERED: PROPOFOL IV EMULSION 10 MG/ML 100 ML VIAL IV ONE (08:13)
[2022-09-17] MEDS ORDERED: ORTHO JOINT ANESTHETIC ONE (08:18)
[2022-09-17] MEDS ORDERED: ePHEDrine sulfate 50 MG/ML AMP IV PRN (08:19)
[2022-09-17] MEDS ORDERED: ATROPINE SULFATE 0.1 MG/ML 10ML SYR IV PRN (08:19)
[2022-09-17] MEDS ORDERED: ONDANSETRON INJ 2 MG/ML 2 ML VIAL IV PRN ×2 (08:19→13:04)
--- NOTE | 2022-09-17 08:19 | Anesthesiology Consultation ---
Date of Service September 17, 2022 Assessment & Plan Chart Review Chart Review: Acceptable Risk for Surgery and Patient NOT seen in Pre Admission Testing Consults Requested none ASA ASA3 Proposed Anesthesia Anesthesia Type: MAC Spinal Regional Regional Laterality: Left Site: Adductor Canal Risk / Benefits Reviewed With: PT / POA / Parent / Guardian, Accepts Plan and Informed Consent Obtained History Surgery Operation Date: 09/17/22 09:10 Proposed Procedures p Left Total Knee Arthroplasty - Kris Garcia MD Height/Weight Height: 5 ft 1 in Weight: 114.816 kg Allergies Allergy/AdvReac Type Severity Reaction Status Date / Time povidone-iodine Allergy Severe Betadine Verified 08/26/22 15:09 --> MADE HER SKIN RAW adhesive tape Allergy Intermediate Rash Verified 08/26/22 15:09 ibuprofen Allergy Intermediate nausea and Verified 08/26/22 15:09 vomiting Medications Home Medications Medication Instructions Recorded Confirmed Last Taken albuterol sulfate 90 mcg/actuation 2 puff inhalation Q4 PRN Shortness 02/17/21 09/17/22 09/17/22 05:30 aerosol inhaler Of Breath Or Wheezing duloxetine 30 mg capsule,delayed 90 mg PO QAM 02/17/21 09/17/22 09/16/22 18:00 release gabapentin 300 mg capsule 300 mg PO TID 02/17/21 09/17/22 09/17/22 05:45 levothyroxine 25 mcg tablet 25 mcg PO QAM 02/17/21 09/17/22 09/17/22 05:45 lisinopril 20 mg tablet 20 mg PO QAM 02/17/21 09/17/22 09/16/22 08:00 melatonin 5 mg tablet 5 mg PO HS PRN Sleep 02/17/21 09/17/22 09/04/22 omeprazole 20 mg capsule,delayed 20 mg PO BID 02/17/21 09/17/22 09/17/22 05:45 release sumatriptan succinate 50 mg tablet 50 mg PO UD PRN Migraine Headache 02/17/21 09/17/22 Unknown (Imitrex) Beet Root 1 cap PO DAILY 06/08/22 09/17/22 09/04/22 Probioslim X-Strength 1 cap PO BID 06/08/22 09/17/22 Unknown ashwagandha extract 120 mg capsule 120 mg PO HS 06/08/22 09/17/22 09/04/22 aspirin 81 mg tablet,delayed 81 mg PO QAM 06/08/22 09/17/22 09/14/22 release bupropion HCl 150 mg 24 hr tablet, 150 mg PO QAM 06/08/22 09/17/22 09/17/22 05:45 extended release (Wellbutrin XL) buspirone 30 mg tablet 30 mg PO BID 06/08/22 09/17/22 09/17/22 05:45 cholecalciferol (vitamin D3) 50 50 mcg PO DAILY 06/08/22 09/17/22 09/04/22 mcg (2,000 unit) capsule (Vitamin D3) cyanocobalamin (vitamin B-12) 2,500 mcg PO DAILY 06/08/22 09/17/22 09/04/22 2,500 mcg chewable tablet cyclobenzaprine 10 mg tablet 10 mg PO TID PRN Pain 06/08/22 09/17/22 06/21/22 20:00 evening primrose oil 500 mg capsule 500 mg PO DAILY 06/08/22 09/17/22 09/04/22 flaxseed oil 1,000 mg capsule 1,000 mg PO TID 06/08/22 09/17/22 09/04/22 loratadine 10 mg tablet 10 mg PO QAM 06/08/22 09/17/22 09/16/22 08:00 montelukast 10 mg tablet 10 mg PO HS 06/08/22 09/17/22 09/16/22 20:00 (Singulair) ondansetron HCl 8 mg tablet 8 mg PO Q12H PRN Nausea 06/08/22 09/17/22 Unknown turmeric root extract 150 1 tab PO DAILY 06/08/22 09/17/22 09/04/22 mg-stephanie root extract 25 mg chewable tablet umeclidinium 62.5 mcg/actuation 1 inh inhalation DAILY 06/08/22 09/17/22 09/17/22 05:45 blister powder for inhalation (Incruse Ellipta) celecoxib 200 mg capsule 200 mg PO QAM 06/23/22 09/17/22 09/04/22 polyethylene glycol 3350 17 gram 17 g PO DAILY PRN constipation #5 06/23/22 09/17/22 Unknown oral powder packet (Miralax) ea Cbd 1 dose PO DAILY PRN anxiety/pain 08/26/22 09/17/22 09/16/22 21:30 oxycodone 5 mg tablet 5 mg PO Q6H PRN Pain 08/26/22 09/17/22 Unknown Active Medications Generic Name Dose Route Start Last Admin Trade Name Abdielq PRN Reason Stop Dose Admin Acetaminophen 1,000 mg 09/17/22 06:00 09/17/22 07:39 Acetaminophen 500 Mg Tab PO 09/17/22 18:00 1,000 mg PREOP JACQUELINE Administration Celecoxib 200 mg 09/17/22 06:00 09/17/22 07:39 Celebrex 200 Mg Cap PO 09/17/22 18:00 200 mg PREOP JACQUELINE Administration Dexamethasone 8 mg 09/17/22 06:00 09/17/22 07:40 Dexamethasone 4 Mg Tab PO 09/17/22 18:00 8 mg PREOP JACQUELINE Administration Famotidine 20 mg 09/17/22 06:00 09/17/22 07:39 Famotidine 20 Mg Tab PO 09/17/22 18:00 20 mg PREOP JACQUELINE Administration Lactated Ringer's 1,000 mls @ 15 mls/hr 09/17/22 06:00 09/17/22 07:52 Lr IV 09/17/22 18:00 15 mls/hr .Q24H JACQUELINE Administration Metoclopramide HCl 10 mg 09/17/22 06:00 09/17/22 07:40 Metoclopramide Hcl 10 Mg Tablet PO 09/17/22 18:00 10 mg PREOP JACQUELINE Administration NPO Date Last Intake of Fluids: 09/16/22 Time Last Intake of Fluids: 23:30 Date Last Intake of Solids: 09/16/22 Time Last Intake of Solids: 18:00 Past Medical History Medical History (Updated 09/16/22 @ 11:22 by Saad Alvarado PA-C) Anxiety and depression Asthma controlled, stable per pt; last rescue inhaler use 1 week ago Chronic back pain Chronic obstructive pulmonary disease Degenerative disc disease GERD (gastroesophageal reflux disease) Controlled and stable History of alcohol abuse History of anemia History of irregular heartbeat NO CARDS [facility] Hx of cervical cancer cervical cancer - s/p hysterectomy- no chemo or XRT Hypertension controlled, stable per pt Hypothyroidism Migraine Overactive bladder Post traumatic stress disorder Sleep-disordered breathing snoring and witnessed apneas, denies sleep study Exercise / Class Metabolic Activity II 4-5 Yardwork/Stairs/Walk up hill Past Family History Family History Grandfather FHx: throat cancer smoker FHx: brain cancer Mother Atrial fibrillation Other No family history of adverse response to anesthesia Past Surgical History Surgical History H/O shoulder surgery LEFT SHOULDER RESURFACING History of appendectomy History of bilateral tubal ligation History of bladder surgery History of cardiac cath ~2012 at [facility]. No CAD per pt- no stents needed History of cholecystectomy History of conization of cervix History of dilatation and curettage History of lumbar fusion L5-S2 decompression-fusion Grade 1 view, MAC 3, ETT 7. History of tooth extraction History of total hip arthroplasty RT Hx of neck surgery left branchial cleft cyst (~2015 [facility]) with repair of left artery S/P arthroscopy of shoulder left S/P epidural steroid injection S/P shoulder hemiarthroplasty Left Shoulder with Dr Garcia 06/2022 [facility] S/P vaginal hysterectomy with anterior/posterior repair Past Anesthesia History No Hx of Anesthesia Complications and No Family Hx of Anesthesia Complications History of PONV No Hx of PONV and No Hx of Motion Sickness Social History Smoking Status: Former smoker tobacco type: cigarettes Do You Dip or Chew Tobacco: No Smoking End Date: 12 + years ago Hx Alcohol Use: Yes alcohol intake frequency: holidays/special occasions only Hx Substance Use: Yes (CBD gummies daily/prn (advised to hold prior to surgery)) substance use type: does not use Physical Exam Vital Signs Last Vital Signs Temp 36.6 C 09/17/22 07:29 Pulse 69 09/17/22 07:29 Resp 18 09/17/22 07:29 BP 164/102 H 09/17/22 07:29 Pulse Ox 99 09/17/22 07:29 O2 Del Method Room Air 09/17/22 07:29 Constitutional + obese ENMT Mouth: no dentition abnormality Thyromental Distance: > or= 3.5 Finger Breadths Mallampati Class: II Neck normal visual inspection Respiratory normal respiratory effort Auscultation: lungs clear to auscultation bilaterally Cardiovascular Rate/Rhythm: regular rate and regular rhythm Psychiatric Orientation: alert Testing Electrocardiogram Date: 12/10/21 Sinus rhythm, rate 99 bpm Chest X-Ray Date: 09/04/22 No active disease in the chest Other Testing Bone scan 04/23/22 1. Three-phase negative bone scan without evidence of infection. 2. Moderately increased delayed activity within the shoulders suggestive of osteoarthritis/chronic remodeling.
[2022-09-17] MEDS ORDERED: ONDANSETRON INJ 2 MG/ML 2 ML VIAL ONE (09:49)
[2022-09-17] MEDS ORDERED: PROPOFOL IV EMULSION 10 MG/ML 20 ML VIAL IV ONE ×2 (09:49→10:41)
[2022-09-17] MEDS ORDERED: diphenhydrAMINE 50 MG/ML VIAL ONE (10:50)
--- NOTE | 2022-09-17 11:09 | Operative Report ---
Post Operative Report Pre & Post Diagnosis Operation Date: 09/17/22 09:10 Pre-Op Diagnosis: Left Knee Osteoarthritis, Morbid obesity BMI 47.8 Post-Op Diagnosis: Left Knee Osteoarthritis, morbid obesity BMI 47.8 I identified the patient and participated in the time-out.: Yes Procedure Operation Date: 09/17/22 09:10 Actual Procedures p Left Total Knee Arthroplasty(Left), ezekiel and Acticoat superficial wound VAC application, increased difficulty morbid obesity BMI 47.8 - Kris Garcia MD Surgeon Kris Garcia MD Animal Ecologist Sanjay DIXON Estimated Blood Loss 5 Findings Consistent with Post-Op Diagnosis Specimens bone cuts Drains 2 Hemovac Anesthesia Type MAC Spinal Regional Complications none Disposition Accompanied Patient To Recovery: No Disposition: Recovery Room Indications 52-year-old female with chronic osteoarthritis of left knee failed conservative management. She has had various injections and medication treatment. Patient's had bracing and therapy. Radiographs demonstrate that she has medial joint space narrowing) [id number] medial compartment on flexion views with medial compartment osteophytes patellofemoral medial compartment OA. Description of Procedure Patient taken to the operating room the size under Spinal MAC regional block anesthesia. Patient was placed supine on the operating table. A pneumatic tourniquet was placed about the obese left upper thigh. The left lower extremity was prepped and draped in sterile fashion. Knee exam demonstrated an obese leg with some knee hyperextension good range of motion minimal pseudolaxity and a moderate large effusion. The leg was elevated exsanguinated with an Esmarch bandage and pneumatic tourniquet was raised to 350 millimeters of mercury. Skin incised sharply in longitudinal fashion. Subcutaneous flaps elevated. Incision was made through the medial retinaculum extending up in the mid third of the quadriceps tendon and down to the medial tibial tubercle. Intra-articular findings demonstrated medial compartment and patellofemoral osteoarthritis with grade 4 arthritic changes on the medial edge of the medial femoral condyle and surrounding grade 3 changes on the rest of the femoral condyle and tibial plateau and grade 3 patellofemoral osteoarthritis with medial compartment and patellofemoral osteophytes. The [place] triathlon total knee arthroplasty system was used. To expose the knee the infrapatellar fat pad was resected. The meniscal remnants and cruciate ligaments were resected. The anterior fat pad over the femur in the area of the anterior flange of the femoral component was resected. Lateral synovial bands release. The femur was exposed. An intramedullary drill hole was made into the canal. A guide carla was placed. Distal femoral cutting guide was adjusted to resect a 5 degree valgus cut with 8 millimeters distal femur resected. The knee was extended and a s ubperiosteal peel lateral release was performed around the patella. Patella width was measured and width was reproduced using a freehand cut technique and a 29 x 8 mm symmetrical patella component. The 3 drill holes were made and the excess lateral facet was beveled off to prevent any impingement. Attention was taken back to the femur which was exposed with retractors and the femoral sizing guide was pinned in position. The drill holes were placed in 3 of external rotation to match epicondylar axis. Femur sized for a 2 component. The 4-in-1 cutting block was placed and then the anterior posterior and chamfer cuts are made. The tibia was then subluxed. The external tibial cutting guide was just to make a perpendicular cut to the long axis of the tibia below the most deficient bone loss side. A lamina steam cleaning machine operator was used and the flexion extension gaps were balanced. All meniscal remnants were resected. The tibia exposed and the trial tibial component size 2 was externally rotated in line with the tibial tubercle and pinned in position. The punch for stem was used. The notch cutting device was centered appropriately and the femoral notch cut was made. The femoral trial was inserted. Trial tibial inserts were placed and size13 PS gave balanced ligaments through flexion and extension. Patella tracking was assessed. The patella tracked with some slight lateral lift off and flexion so I did a limited lateral release leaving the synovium intact and this corrected the patella tracking to central. The trial components were then removed and the orthomix anesthetic cocktail was injected per protocol. The knee was then copiously irrigated with pulsatile lavage saline solution. Final components were then cemented with Refobacin cement. Final components were triathlon size 2 left posterior stabilized femoral component, size 2 universal tibial baseplate with a 12 x 50 mm cemented stem and a 13 mm posterior stabilized polyethylene X.3 polyethylene insert on the tibia and a S 29 x 8 mm X.3 polyethylene symmetrical patella After the cement cured the Betadine soak was used for 3 minutes. Further pulsatile lavage irrigation was then performed and 2 Hemovac drains were brought out laterally. The quadriceps tendon and medial retinaculum were closed with figure of 8 #1 Vicryl sutures. The knee was taken through full range of motion and the repair was secure. Knee range of motion was 0 through 130 degrees. The subcutaneous tissues were closed with 2-0 Vicryl sutures. Skin was closed with [place]. a ezekiel and Acticoat superficial wound VAC was applied applied. The patient tolerated the procedure well. Sanjay DIXON was my physician life science research assistant who participated as research assistant professor and was involved in all aspects of the procedure including patient positioning prepping and draping,leg positioning ,soft tissue retraction and instrument management and participated in the closing and application of the superficial wound VAC and will participate in postoperative care of the patient. was increased level difficulty due to morbid obesity which required 25 minutes additional time to the procedure. The patient tolerated the procedure well. I attest to the content of the Intraoperative Record and any orders documented therein. Any exceptions are noted below.
[2022-09-17] MEDS: fentaNYL citrate PF 100 MCG/2 ML VIAL IV PRN ×4 (11:56→12:11)
--- NOTE | 2022-09-17 12:59 | XRay Report ---
XR knee LT 1 or 2V routine HISTORY: 52 years-old Female Surgical Post Op left knee arthroplasty COMPARISON: 10/05/2015 TECHNIQUE: 2 views of the left knee FINDINGS: Total joint arthroplasty with patellar resurfacing. Anterior midline skin ngoc are noted along wit h expected postoperative soft tissue swelling with deep tissue air. Surgical drainage catheter. No ac twin hills fracture, dislocation or unexpected opaque foreign body. IMPRESSION: Total joint arthroplasty with expected postoperative changes. ACT 112: Negative or not required by law. The above report was generated using voice recognition software. It may contain grammatical, syntax o r spelling errors. Electronically signed by: Edilson Snow M.D. 09/17/2022 12:57 PM
[2022-09-17] MEDS ORDERED: HYDROmorphone INJ 0.5 MG/0.5 ML SYR IV PRN (13:04)
[2022-09-17] MEDS ORDERED: MELATONIN 3 MG TAB PO PRN (13:04)
[2022-09-17] MEDS ORDERED: MAGNESIUM HYDROXIDE SUSP 30 ML UDC PO PRN (13:04)
[2022-09-17] MEDS ORDERED: diphenhydrAMINE 50 MG/ML VIAL IV PRN (13:04)
[2022-09-17] MEDS ORDERED: POLYETHYLENE (MIRALAX) 17 GM PACK PO PRN (13:04)
[2022-09-17] MEDS ORDERED: bisacodyL 10 MG SUPP PR PRN (13:04)
[2022-09-17] MEDS ORDERED: NALOXONE HCL 0.4 MG/1 ML VIAL/CARP IV PRN (13:04)
[2022-09-17] MEDS ORDERED: SUMAtriptan succinate 50 MG TAB PO PRN (13:04)
[2022-09-17] MEDS: oxyCODONE HCL IR 5 MG TAB (IMMEDIATE RELEASE) PO PRN ×2 (13:31→20:08)
[2022-09-17] MEDS: SODIUM CHLORIDE 0.9% 1000ML 1,000 ML IV SCH ×2 (13:32→23:56)
--- NOTE | 2022-09-17 13:35 | Anesthesiology Progress Note ---
Date of Service September 17, 2022 Anesthesia Post Procedure Vital Signs Vital Signs: Temp Pulse Pulse Pulse Resp BP Pulse Ox 09/17/22 12:35 36.6 C 87 18 119/82 96 09/17/22 13:05 36.4 C L 88 16 128/85 98 09/17/22 12:25 98 H 14 111/88 94 09/17/22 12:20 36.4 C L 81 20 123/77 95 09/17/22 12:10 80 14 127/97 97 09/17/22 12:00 70 15 149/99 H 97 09/17/22 11:50 79 25 H 147/98 H 94 09/17/22 11:40 66 19 159/95 H 97 09/17/22 11:30 75 23 146/101 H 100 09/17/22 11:21 36.0 C L 84 21 128/84 100 09/17/22 07:29 36.6 C 69 18 164/102 H 99 O2 Del Method O2 Flow Rate 09/17/22 12:35 Room Air 09/17/22 13:05 Room Air 09/17/22 12:25 Room Air 09/17/22 12:20 Room Air 09/17/22 12:10 Room Air 09/17/22 12:00 Room Air 09/17/22 11:50 Room Air 09/17/22 11:40 Room Air 09/17/22 11:30 Room Air 09/17/22 11:21 Oxymask 2 09/17/22 07:29 Room Air Pain Intensity Left Shoulder: Pain Intensity: 4 Transfer of Care Handoff Completed per policy Notes Mental Status: alert / awake / arousable Patient Amnestic to Procedure: Yes Nausea / Vomiting: adequately controlled Pain: adequately controlled Airway Patency, RR, SpO2: stable & adequate BP & HR: stable & adequate Hydration State: stable & adequate Neuraxial Anesthesia: was administered and sensory block resolved Anesthetic Complications: no major complications apparent
[2022-09-17] MEDS: ACETAMINOPHEN 500 MG TAB PO SCH ×2 (15:05→23:03)
[2022-09-17] MEDS: GABAPENTIN 300 MG CAP PO SCH ×2 (15:05→20:23)
[2022-09-17] MEDS: ASPIRIN 81 MG ECTAB PO SCH (20:22)
[2022-09-17] MEDS: busPIRone 15 MG TAB PO SCH (20:22)
[2022-09-17] MEDS: DOCUSATE SODIUM 100 MG CAP PO SCH (20:23)
[2022-09-17] MEDS ORDERED: SENNA 8.6 MG TAB PO SCH (21:00)
[2022-09-17] MEDS ORDERED: MONTELUKAST SODIUM 10 MG TABLET PO SCH (21:00)
[2022-09-18] MEDS: oxyCODONE HCL IR 5 MG TAB (IMMEDIATE RELEASE) PO PRN ×3 (00:16→09:44)
[2022-09-18] MEDS ORDERED: KETOROLAC 30 MG/ML VIAL IV SCH (07:15)
[2022-09-18] MEDS: ACETAMINOPHEN 500 MG TAB PO SCH (07:19)
[2022-09-18] MEDS: GABAPENTIN 300 MG CAP PO SCH (07:20)
[2022-09-18] MEDS: busPIRone 15 MG TAB PO SCH (07:20)
[2022-09-18] MEDS: ASPIRIN 81 MG ECTAB PO SCH (07:20)
[2022-09-18] MEDS: DOCUSATE SODIUM 100 MG CAP PO SCH (07:21)
--- NOTE | 2022-09-18 07:28 | Orthopedic Progress Note ---
Date of Service September 18, 2022 Assessment & Plan (1) Primary osteoarthritis of left knee: Plan: Postop day 1 status post left total knee arthroplasty. PT/OT protocols. Weightbearing as tolerated. An immobilizer has been ordered to the bedside for use with ambulation if her knee continues to remain weak. DVT prophylaxis-aspirin p.o. twice daily, Madalyn, GEE hart. Pain management as written. Toradol has been added for additional pain control DC planning-the patient is planning for home health services upon discharge. Admission and Anticipated Discharge Date Admission Date: September 17, 2022 Subjective postop day 1 patient lying in bed awake and alert. Patient states that she fell last night while in the bathroom. She states that while she was ambulating to the toilet, that her operative knee buckled and she ended up somewhat falling onto the toilet and the floor. she does not have any overt pain in the left knee other than what she had had at the time of the fall. She appears comfortable at this time. She states that she is having some pain in her left shoulder although she has good range of motion. She is also complaining of some low back pain which she is chronic history of. Physical Exam Physical Exam: Dressings are clean, dry, and intact. Calves are soft nontender. Neurovascular intact. Toes are mobile. She has good dorsiflexion and plantarflexion of her left foot. Minimal drainage from her Hemovac. Results & Data Vital Signs (Past 12 Hours) Vital Signs Temp Pulse Resp BP Pulse Ox O2 Del Method 09/18/22 04:36 36.6 C 73 18 134/86 97 Room Air 09/18/22 04:21 36.5 C 73 16 122/83 95 Room Air 09/17/22 23:58 37.0 C 79 16 122/82 94 Room Air 09/17/22 20:05 36.9 C 82 18 131/88 95 Room Air
[2022-09-18 07:29] LABS: Hematocrit (blood only) 31.2 % (37.0-47.0); Hemoglobin 10.3 g/dl (12.0-16.0); Mean Corpuscular Hemoglobin 30.2 pg (25.0-34.0); Mean Corpuscular Volume 91.5 fL (80.0-100.0); Mean Platelet Volume 11.9 fL (9.4-12.4); Platelet Count 283 K/uL (130-400); RDW Coefficient of Variation 13.5 % (11.5-14.5); RDW Standard Deviation 46.1 fL (36.4-46.3); Red Blood Count 3.41 M/uL (4.20-5.40); White Blood Count 15.03 K/ul (4.8-10.8)
--- NOTE | 2022-09-18 07:52 | Hospitalist Consultation ---
Date of Consultation September 18, 2022 Assessment & Plan (1) Primary osteoarthritis of left knee: Continue management including DVT ppx with asa BID and post-operative care by primary service S/p TKA 09/17 PT recommends HH services, patient for discharge today (2) Depression: Continue home Wellbutrin, Buspar, Cymbalta (3) Anemia: Chronic, however no records in chart of clear cause B12, folate, iron studies normal, follow up with PCP (4) Hypothyroidism: Continue levothyroxine (5) Chronic obstructive pulmonary disease: Not on supplemental O2 Rescue inhaler as needed (6) Hypertension: On chart, BP 120s systolic today, can continue lisinopril (7) GERD (gastroesophageal reflux disease): Continue PPI History of Present Illness Reason for Consultation: medical management Requesting Physician: Kris Garcia MD Attending Physician: Kris Garcia MD History of Present Illness 52 yo F Hx OA, depression, COPD not on supplemental O2, GERD, HTN, lumbar DDD admitted for left TKA under primary service Dr. Garcia with Orthopedics. Hospitalist service asked to consult for medical management. Patient herself denies symptoms save for left knee pain, did twist in the bathroom last night but no worse pain today. Denies chest pain, SOB, fever, abdominal pain. Has had some constipation in the past alleviated with OTC medications. Allergies Allergy/AdvReac Type Severity Reaction Status Date / Time povidone-iodine Allergy Severe Betadine Verified 08/26/22 15:09 --> MADE HER SKIN RAW adhesive tape Allergy Intermediate Rash Verified 08/26/22 15:09 ibuprofen Allergy Intermediate nausea and Verified 08/26/22 15:09 vomiting Home Medications Medication Instructions Recorded Confirmed Type albuterol sulfate 90 mcg/actuation 2 puff inhalation Q4 PRN Shortness 02/17/21 09/17/22 History aerosol inhaler Of Breath Or Wheezing duloxetine 30 mg capsule,delayed 90 mg PO QAM 02/17/21 09/17/22 History release gabapentin 300 mg capsule 300 mg PO TID 02/17/21 09/17/22 History levothyroxine 25 mcg tablet 25 mcg PO QAM 02/17/21 09/17/22 History lisinopril 20 mg tablet 20 mg PO QAM 02/17/21 09/17/22 History melatonin 5 mg tablet 5 mg PO HS PRN Sleep 02/17/21 09/17/22 History omeprazole 20 mg capsule,delayed 20 mg PO BID 02/17/21 09/17/22 History release sumatriptan succinate 50 mg tablet 50 mg PO UD PRN Migraine Headache 02/17/21 09/17/22 History (Imitrex) Beet Root 1 cap PO DAILY 06/08/22 09/17/22 History Probioslim X-Strength 1 cap PO BID 06/08/22 09/17/22 History ashwagandha extract 120 mg capsule 120 mg PO HS 06/08/22 09/17/22 History bupropion HCl 150 mg 24 hr tablet, 150 mg PO QAM 06/08/22 09/17/22 History extended release (Wellbutrin XL) buspirone 30 mg tablet 30 mg PO BID 06/08/22 09/17/22 History cholecalciferol (vitamin D3) 50 50 mcg PO DAILY 06/08/22 09/17/22 History mcg (2,000 unit) capsule (Vitamin D3) cyanocobalamin (vitamin B-12) 2,500 mcg PO DAILY 06/08/22 09/17/22 History 2,500 mcg chewable tablet cyclobenzaprine 10 mg tablet 10 mg PO TID PRN Pain 06/08/22 09/17/22 History evening primrose oil 500 mg capsule 500 mg PO DAILY 06/08/22 09/17/22 History flaxseed oil 1,000 mg capsule 1,000 mg PO TID 06/08/22 09/17/22 History loratadine 10 mg tablet 10 mg PO QAM 06/08/22 09/17/22 History montelukast 10 mg tablet 10 mg PO HS 06/08/22 09/17/22 History (Singulair) ondansetron HCl 8 mg tablet 8 mg PO Q12H PRN Nausea 06/08/22 09/17/22 History turmeric root extract 150 1 tab PO DAILY 06/08/22 09/17/22 History mg-stephanie root extract 25 mg chewable tablet umeclidinium 62.5 mcg/actuation 1 inh inhalation DAILY 06/08/22 09/17/22 History blister powder for inhalation (Incruse Ellipta) celecoxib 200 mg capsule 200 mg PO QAM 06/23/22 09/17/22 History polyethylene glycol 3350 17 gram 17 g PO DAILY PRN constipation #5 06/23/22 09/17/22 Rx oral powder packet (Miralax) ea Cbd 1 dose PO DAILY PRN anxiety/pain 08/26/22 09/17/22 History acetaminophen 500 mg tablet 1,000 mg PO Q8H 14 days #84 tabs 09/18/22 Rx (Tylenol Extra Strength) aspirin 81 mg tablet,delayed 81 mg PO BID 30 days #60 tabs 09/18/22 Rx release oxycodone 5 mg tablet 5 mg PO Q4H PRN pain #30 tabs 09/18/22 Rx polyethylene glycol 3350 17 gram 17 g PO DAILY PRN constipation #5 09/18/22 Rx oral powder packet (Miralax) ea Patient History Medical History Anxiety and depression Asthma controlled, stable per pt; last rescue inhaler use 1 week ago Chronic back pain Chronic obstructive pulmonary disease Degenerative disc disease GERD (gastroesophageal reflux disease) Controlled and stable History of alcohol abuse History of anemia History of irregular heartbeat NO CARDS Hx of branchial cleft cyst left -- removed ~2015 [facility] Hx of cervical cancer cervical cancer - s/p hysterectomy- no chemo or XRT Hypertension controlled, stable per pt Hypothyroidism Migraine Overactive bladder Post traumatic stress disorder Sleep-disordered breathing snoring and witnessed apneas, denies sleep study Surgical History H/O shoulder surgery LEFT SHOULDER RESURFACING History of appendectomy History of bilateral tubal ligation History of bladder surgery History of cardiac cath ~2012 at [facility]. No CAD per pt- no stents needed History of cholecystectomy History of conization of cervix History of dilatation and curettage History of lumbar fusion L5-S2 decompression-fusion Grade 1 view, MAC 3, ETT 7. History of tooth extraction History of total hip arthroplasty RT Hx of neck surgery left branchial cleft cyst (~2015 [facility]) with repair of left artery S/P arthroscopy of shoulder left S/P epidural steroid injection S/P shoulder hemiarthroplasty Left Shoulder with Dr Garcia 06/2022 [facility] S/P vaginal hysterectomy with anterior/posterior repair Family History Grandfather FHx: throat cancer smoker FHx: brain cancer Mother Atrial fibrillation Other No family history of adverse response to anesthesia Social History Smoking Status: Former smoker Smoking End Date: 12 + years ago; Second Hand Exposure: Yes; Do You Dip or Chew Tobacco: No; Tobacco Cessation Education Requested by Patient: No Hx Alcohol Use: Yes Hx Substance Use: Yes (CBD gummies daily/prn (advised to hold prior to surgery)) Preferred Language: Croatian Communication Ability: Effective 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 Beliefs That Will Affect Care: None Current Living Situation: Significant Other Other Information That Helps Us Care for You: No Feels Safe at Home: Yes Safety Concerns: Feels Safe At This Time Assistive Devices: Cane, Walker and Wheelchair Review of Systems Review of Systems: All systems reviewed & are unremarkable except as noted in Subjective Physical Exam Constitutional: WD/WN, vitals as above Respiratory: normal respiratory effort, lungs clear to auscultation Cardiovascular: RRR, no murmur, no edema (Normal capillary refill) Gastrointestinal (Abdomen): normal bowel sounds, soft, nontender, no hepatosplenomegaly Musculoskeletal: Left knee dressing/bandage in place, not removed by this provider Skin: no rashes, warm and dry Psychiatric: A+Ox3, euthymic affect Results & Data Results & Data Vital Signs (Past 12 Hours) Vital Signs Temp Pulse Resp BP Pulse Ox O2 Del Method 09/18/22 07:28 79 20 121/83 96 Room Air 09/18/22 04:36 36.6 C 73 18 134/86 97 Room Air 09/18/22 04:21 36.5 C 73 16 122/83 95 Room Air 09/17/22 23:58 37.0 C 79 16 122/82 94 Room Air 09/17/22 20:05 36.9 C 82 18 131/88 95 Room Air PG Care Time/CCT Total # of Minutes Spent Total Time Spent with Patient: Total time spent is greater than 50% in coordination of care (as documented) at patient's floor/unit and/or counseling patient: Coding Level of Care Code 54757 IN/OBS CONSULT LVL 3,45M Diagnoses Primary osteoarthritis of left knee M17.12 Depression F32.9 Anemia D64.9 Hypothyroidism E03.9 Chronic obstructive pulmonary disease J44.9 Hypertension I10 GERD (gastroesophageal reflux disease) K21.9
[2022-09-18 07:54] LABS: BUN Creatinine Ratio 21.2 (10-20); Calcium 8.8 mg/dl (8.6-10.3); Creatinine Clr Calc Pharmacy 93.3 ml/min; Est GFR (African American) 92.6 ml/min; Est GFR (Non-African American) 79.9 ml/min; Potassium 3.8 mmol/L (3.5-5.1)
[2022-09-18] MEDS ORDERED: LEVOTHYROXINE SODIUM 25 MCG TABLET PO SCH (09:00)
[2022-09-18] MEDS ORDERED: MULTIVITAMIN TAB PO SCH (09:00)
[2022-09-18] MEDS ORDERED: DULoxetine HCL 30 MG CAP PO SCH (09:00)
[2022-09-18] MEDS ORDERED: LORATADINE 10 MG TAB PO SCH (09:00)
[2022-09-18] MEDS ORDERED: buPROPion XL 150 MG TABCR PO SCH (09:00)
[2022-09-18] MEDS ORDERED: PANTOprazole 40 MG TAB PO SCH (09:00)
[2022-09-18] MEDS ORDERED: CHOLECALCIFEROL 1,000 UNITS 25 MCG TAB PO SCH (09:00)
[2022-09-18] MEDS ORDERED: UMECLIDINIUM BROMIDE 62.5MCG/BLISTER 7 PUFFS/INHALER INH SCH (09:00)
[2022-09-18] MEDS ORDERED: lisinopril 20 MG TAB PO SCH (09:00)
[2022-09-18] MEDS ORDERED: CYANOCOBALAMIN (B-12) 2,500 MCG TABLET PO SCH (09:00)
[2022-09-18 09:18] LABS: Iron 68 mcg/dl (35-150); Total Iron Binding Cap Calc 321 mcg/dl (250-450); Transferrin (FE) Percent Satur 21 % (15-50); Unsaturated Iron Binding Cap 253 mcg/dl (155-355)
--- NOTE | 2022-09-18 11:43 | Discharge Summary ---
Date of Service September 18, 2022 Admission HPI Per Admitting Provider 52yo female with PMHx significant for HTN, COPD, chronic back pain, hypothyroid, migraine, anxiety/depression, PTSD who presents with ongoing left knee pain. Pain is interfering with her daily activities. She has failed conservative measures including injections and anti-inflammatories. She like to proceed with surgical intervention. Patient denies headaches, sweats, fevers, chills, double vision, blurred vision, cough, sore throat, dysphagia, chest pain, sob, wheezing, n/v/d/c, numbness, tingling, fatigue, urinary symptoms, mood disorders. ROS positive for left knee pain and stiffness. Admission Exam Per Admitting Provider Physical Exam Constitutional: well developed and well nourished; no acute distress Eyes: PERRL, conjunctivae normal, anicteric sclerae ENMT: external ear and nose normal, oropharynx normal Neck: trachea midline, no thyromegaly Respiratory: normal respiratory effort, lungs clear to auscultation Cardiovascular: RRR, no murmur, no edema Musculoskeletal: Left knee: Range of motion is 0 to 120 degrees. Varus thrust. There is varus alignment. Moderate effusion. Tenderness medial joint line. Crepitation with range of motion. Positive Erin's. Stable to valgus and varus stress test. Skin: no rashes, warm and dry Neurologic: patellar DTR's 2+ bilat, sensation intact Psychiatric: A+Ox3, euthymic affect Principal Diagnosis Left Knee Osteoarthritis Discharge Data Allergies Allergy/AdvReac Type Severity Reaction Status Date / Time povidone-iodine Allergy Severe Betadine Verified 08/26/22 15:09 --> MADE HER SKIN RAW adhesive tape Allergy Intermediate Rash Verified 08/26/22 15:09 ibuprofen Allergy Intermediate nausea and Verified 08/26/22 15:09 vomiting Consultations 09/15/22 10:33 Consult Hospitalist Routine Procedures Performed Operation Date: 09/17/22 09:10 Actual Procedures p Left Total Knee Arthroplasty(Left) - Kris Garcia MD Ordered Studies 09/17/22 05:00 US - OR guided needle placemen Routine Hospital Course (1) Primary osteoarthritis of left knee: Patient:KEMAL BURNETTE Admit Date:09/17/22 MR#:[id number] Att Phy:Kris Garcia M.D. Acct ID:[id number] Tressa Phy:Chelsie Nicholas MD Date:1970 Fam Phy: Age:52 Location:3E Sex:F Room/Bed:E321-1 cc: ~ *NOTICE TO RECEIVING LIBERTARIAN/AGENCY This information is strictly Confidential and protected under [place] law. [place] law prohibits you from making any further disclosure of this information unless further disclosure is expressly permitted by the written consent of the person to whom it pertains or is authorized by law. A general authorization for the release of medical or other information is not sufficient for this purpose. Hospital accepts no responsibility if the information is made available to any other person, INCLUDING THE PATIENT. Date of Service September 18, 2022 Assessment & Plan (1) Primary osteoarthritis of left knee: Plan: Postop day 1 status post left total knee arthroplasty. PT/OT protocols. Weightbearing as tolerated. An immobilizer has been ordered to the bedside for use with ambulation if her knee continues to remain weak. DVT prophylaxis-aspirin p.o. twice daily, SCDs, GEE hart. Pain management as written. Toradol has been added for additional pain control DC planning-the patient is planning for home health services upon discharge. Addendum: Pt progressed well with PT. Pt requesting to return home with services. Dr. Garcia has seen the pt and agrees on discharge. Admission and Anticipated Discharge Date Admission Date: September 17, 2022 Subjective postop day 1 patient lying in bed awake and alert. Patient states that she fell last night while in the bathroom. She states that while she was ambulating to the toilet, that her operative knee buckled and she ended up somewhat falling onto the toilet and the floor. she does not have any overt pain in the left knee other than what she had had at the time of the fall. She appears comfortable at this time. She states that she is having some pain in her left shoulder although she has good range of motion. She is also complaining of some low back pain which she is chronic history of. Physical Exam Physical Exam: Dressings are clean, dry, and intact. Calves are soft nontender. Neurovascular intact. Toes are mobile. She has good dorsiflexion and plantarflexion of her left foot. Minimal drainage from her Hemovac. Results & Data Vital Signs (Past 12 Hours) Vital Signs Temp Pulse Resp BP Pulse Ox O2 Del Method 09/18/22 04:36 36.6 C 73 18 134/86 97 Room Air 09/18/22 04:21 36.5 C 73 16 122/83 95 Room Air 09/17/22 23:58 37.0 C 79 16 122/82 94C Room Air 09/17/22 20:05 36.9 C 82 18 131/88 95 Room Air Signed By: <Electronically signed by Kris Garcia MD> 09/18/22 0944 <Electronically signed by Sanjay Cerda PA-C> 09/18/22 07 Created:09/18/22725 The status of this report isSigned. Total Time Total Time Spent Total Time Spent (In Minutes): 5 Discharge Plan Discharge Items Patient Disposition: Home - Home Health Services Reason For Visit: Left Knee Osteoarthritis Discharge Diagnosis: Left Knee Osteoarthritis Activity: Per Instructions section Weightbearing: Left weightbearing Weightbearing Comment: as tolerated with walker Non-emergency contact: Surgeon Call non-emergency contact if: you have any medication questions, your pain is not controlled, your temperature is above 101.5, your wound has increased redness and your wound has increased drainage Follow-up/Referrals: Kris Garcia MD [Surgeon] - (Follow up with Dr. Garcia or his PA in 2 weeks from the day of surgery for your first post operative visit.) Chelsie Nicholas MD [Primary Care Provider] - Diet: Regular Addtl Attending Provider Instructions: ACTIVITY RECOMMENDATIONS: SELF CARE INSTRUCTIONS AFTER TOTAL KNEE REPLACEMENT A. You may need to continue a physical therapy program after discharge from the hospital. There are several options available to you. Your doctor will assist you in selecting the best one for you. 1. An out-patient facility 2 to 3 times a week for therapy or home therapy. 2. Continue working on all exercises taught to you in the hospital. Your goals should be to increase bending of your knee to 90 degrees and beyond and to fully straighten your knee. B. You may progress at your own pace from walking with a walker or crutches to a cane; then to no assistive devices. C. Make walking a part of your daily routine. Be up as much as comfortable with rest periods throughout the day. Rest with leg elevation is very important. Use the ice wrap frequently for the first 3-4 weeks. D. There are no restrictions on activities. You may ride in a car, shop, participate in practice specialist and all social activities. E. Wear the long elastic stockings (GEE hose) 20 hours a day for 2 weeks after surgery. They can be removed several times a day for laundering and for a bath. F. You may shower, no tub baths until cleared by your doctor. SPECIAL CARE INSTRUCTIONS: VERY IMPORTANT TO READ AND REVIEW A. There are a few signs you need to watch for after you are home. Call [facility] if you notice any of the followin. Increased severe knee pain. Some pain is expected especially when you exercise. 2. Increased swelling in your leg or knee; pain or swelling of the calf muscle in either lower leg. 3. Any fluid drainage from the incision. 4. Shortness of breath or chest pain. B. Please call [facility] at if you have any concerns or questions about your operation or recovery. The doctor or his nurse will return your call promptly. C. You must take antibiotics before dental work, bladder, bowel or other surgery. Your doctor will provide you with a permanent care to carry describing this precaution. IMPORTANT: * REMEMBER TO TAKE ASPIRIN, 81 MG, TWICE DAILY FOR 4 WEEKS UNLESS OTHERWISE DIRECTED. THIS IS YOUR BLOOD THINNER. * CALL IF INCREASED PAIN, REDNESS, DRAINAGE OR FEVER GREATER THAT 101. * WEAR GEE HOSE 20 HOURS PER DAY FOR 2 WEEKS. * JEANNIE Dressing - This is a large suction dressing covering your incision. This will help pull any excess drainage from the wound and allow your incision to heal properly. You may shower with this if you can keep the unit outside of the shower. If any bleeding or leakage is noted please call your doctor's office. This will remain on your incision for 7 days and then should be removed. This can be done yourself or by the home nursing staff if applicable. The entire unit is disposable once removed. Once removed, keep incision clean and dry. If redness or drainage is noted, please call your surgeon. . * Once Jeannie dressing removed, you may get the wound wet. No baths, swimming pools, hot tubs. Keep wound covered until seen back in the office for your first visit. FOLLOW UP VISIT: If appointment is not already scheduled: Please call [facility] to make a follow-up appointment for 2 weeks after your surgery at . Stand-Alone Forms: [facility], Smoking Cessation Medications and DC Order Prescriptions: New aspirin 81 mg Tablet,Delayed Release (Dr/Ec) 81 mg PO BID 30 Days Qty: 60 0RF acetaminophen [Tylenol Extra Strength] 500 mg Tablet 1,000 mg PO Q8H 14 Days Qty: 84 0RF oxycodone 5 mg tablet 5 mg PO Q4H MDD 6 PRN (Reason: pain) Qty: 30 0RF polyethylene glycol 3350 [Miralax] 17 gram powder in packet 17 g PO DAILY PRN (Reason: constipation) Qty: 5 0RF Continued lisinopril 20 mg Tablet 20 mg PO QAM sumatriptan succinate [Imitrex] 50 mg tablet 50 mg PO UD PRN (Reason: Migraine Headache) levothyroxine 25 mcg tablet 25 mcg PO QAM gabapentin 300 mg capsule 300 mg PO TID omeprazole 20 mg capsule,delayed release(DR/EC) 20 mg PO BID albuterol sulfate 90 mcg/actuation HFA aerosol inhaler 2 puff INHALATION Q4 PRN (Reason: Shortness Of Breath Or Wheezing) duloxetine 30 mg capsule,delayed release(DR/EC) 90 mg PO QAM Rx Instructions: Take with 60 mg to = 90mg melatonin 5 mg Tablet 5 mg PO HS PRN (Reason: Sleep) cyclobenzaprine 10 mg Tablet 10 mg PO TID PRN (Reason: Pain) buspirone 30 mg Tablet 30 mg PO BID montelukast [Singulair] 10 mg Tablet 10 mg PO HS loratadine 10 mg Tablet 10 mg PO QAM bupropion HCl [Wellbutrin XL] 150 mg Tablet Extended Release 24 Hr 150 mg PO QAM evening primrose oil 500 mg Capsule 500 mg PO DAILY Rx Instructions: give with meal/snack flaxseed oil 1,000 mg Capsule 1,000 mg PO TID Rx Instructions: administer with meals cholecalciferol (vitamin D3) [Vitamin D3] 50 mcg (2,000 unit) Capsule 50 mcg PO DAILY Incruse Ellipta 62.5 mcg/actuation Blister With Device 1 inh INHALATION DAILY cyanocobalamin (vitamin B-12) 2,500 mcg Tablet,Chewable 2,500 mcg PO DAILY turmeric root-stephanie root ext 150-25 mg Tablet,Chewable 1 tab PO DAILY ashwagandha extract 120 mg Capsule 120 mg PO HS Beet Root 1 cap PO DAILY Probioslim X-Strength 1 cap PO BID ondansetron HCl 8 mg Tablet 8 mg PO Q12H PRN (Reason: Nausea) polyethylene glycol 3350 [Miralax] 17 gram powder in packet 17 g PO DAILY PRN (Reason: constipation) Qty: 5 0RF celecoxib 200 mg capsule 200 mg PO QAM Cbd 1 dose PO DAILY PRN (Reason: anxiety/pain) Discontinued aspirin 81 mg Tablet,Delayed Release (Dr/Ec) 81 mg PO QAM oxycodone 5 mg Tablet 5 mg PO Q6H PRN (Reason: Pain) [place]/Other Patient Handouts: DVT Post Op Prevention, Total Knee Replacement Admission Data Admit Date/Time: 09/17/22 11:32 Attending Provider: Kris Garcia Admit Provider: Kris Garcia Primary Care Provider: Chelsie Nicholas Other Providers: Maik Maza Marina M. ; Agustín Hwang [facility] Other Interventions: Discharge Summary Assessment (RN) Last Done: 09/18/22 11:08
== END 2022-09-18 11:45 | disposition home health service (06) ==
LOC: ASU 07:04 → 3E 07:04